=== PATIENT | female | born 1945 | race Caucasian/White ===

== ENCOUNTER 2019-03-25 06:24 | Day surgery (SDC) | payer OTHER ==
--- NOTE | 2019-03-23 15:07 | EKG ---
Test Date: 2019-03-22 Test Time: 16:00:30 A&P Technician: CONNIE MEASUREMENT RESULTS: Intervals: Rate: 64 NV: 168 QRSD: 78 QT: 392 QTc: 404 [place]: P: 60 NV: 168 QRS: 49 T: 47 INTERPRETIVE STATEMENTS: Normal sinus rhythm Normal ECG No previous ECG available for comparison Electronically Signed On 03-23-19 15:07:38 CDT by Abdi Pradhan
[2019-03-25] MEDS: OXYMETAZOLINE HCL 0.05% 15ML NAS ONE ×3 (06:40→07:00)
[2019-03-25] MEDS ORDERED: NA CHLORIDE 0.9% 1,000 ML ONE (07:10)
[2019-03-25] MEDS ORDERED: PROPOFOL 200 MG/20 ML VIAL IV ONE (07:27)
[2019-03-25] MEDS ORDERED: ROCURONIUM 50 MG/5 ML VIAL IV ONE (07:27)
[2019-03-25] MEDS ORDERED: GLYCOPYRROLATE 0.2 MG/ML SYR ONE ×2 (07:28→09:04)
[2019-03-25] MEDS ORDERED: dexAMETHasone 10 MG/ML VIAL ONE (07:29)
[2019-03-25] MEDS ORDERED: LIDOCAINE 2% MPF 5 ML VIAL ONE (07:30)
[2019-03-25] MEDS ORDERED: FENTANYL CITR 250 MCG/5 ML ONE (07:31)
[2019-03-25] MEDS ORDERED: ONDANSETRON 4 MG/2 ML VIAL ONE ×2 (07:33→09:33)
[2019-03-25] MEDS ORDERED: NEOSTIGMINE 1 MG/ML -10 ML VIAL ONE (07:33)
[2019-03-25] MEDS ORDERED: MIDAZOLAM HCL 2 MG/2 ML INJ ONE (07:33)
[2019-03-25] MEDS ORDERED: LIDOCAINE 1.5% W/EPI AMP 5 ML ONE (07:38)
[2019-03-25] MEDS ORDERED: NA CHLORIDE 0.9% 500 ML ONE (07:38)
[2019-03-25] MEDS ORDERED: OXYMETAZOLINE HCL 0.05% 15ML NAS ONE (07:38)
[2019-03-25] MEDS ORDERED: EPHEDRINE SULF 50 MG/ML VIAL ONE (08:22)
[2019-03-25] MEDS ORDERED: NYSTATIN/TRIAMCIN OINT 15 GM ONE (08:39)
[2019-03-25] MEDS ORDERED: NYSTATIN/TRIAMCIN OINT 15 GM TOP ONE (08:45)
--- NOTE | 2019-03-25 09:00 | P.BOP ---
Preoperative diagnosis: R max CRS, B neha Postoperative diagnosis: same, suspect R fungal ball Primary procedure: R NE with max antrostomy and removal fo sinus contents Secondary procedure: B neha resection Estimated blood loss: 30ml Specimen: see dication Findings: thick secretions and severely inflammed maxiallary mucosa Anesthesia: General Complications: None Fluids & blood products: crystalloid 800ml Transferred to: Recovery Room Condition: Good
[2019-03-25] MEDS: HYDROMORPHONE HCL 1 MG/ML INJ ONE ×4 (09:29→09:54)
--- NOTE | 2019-03-25 19:12 | OP ---
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 Procedures Performed: Bilateral neha bullosa resection and right maxillary antrostomy with removal of sinus contents. Indication For Procedure: Ms. 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 She underwent CT in preparation for dental implant placement, but was noted to have a right maxillary sinus opacifica tion. She was seen by me and treated with maximal medical therapy and a posttreatment CT scan reveal ed persistent complete maxillary opacification with radiographic evidence suggestive of fungal secret ions as well as a bilateral neha bullosa. The risks, benefits, and alternatives to the procedure w ere discussed with the patient who agreed to proceed. Description Of Procedure: The head of bed was turned 90 degrees. The nasal hairs were trimmed. The nasal cavity was packed with Afrin-soaked pledgets. After time for effect, these were removed and t he left nasal cavity was examined using a 0-degree endoscope. The neha bullosa was noted and injec camelia with 1.5% lidocaine with epinephrine. A sickle knife was used to incise through the head of the middle turbinates. Endoscopic scissors were used to cut the superior and inferior portions and a 45- degree through-cutting Blakesley was used to divide the posterior aspect. The lateral portion of the neha bullosa was then removed as a single large fragment. The microdebrider was used to refine th e cut edges. Removed small areas of redundant mucosal tissue and bone fragments from the edges. The middle meatus was then packed with Afrin-soaked pledgets and attention was turned to the right side. The neha bullosa and uncinate process were injected with 1.5% lidocaine with epinephrine. The ri t neha bullosa was incised and removed in a similar fashion as the left. There was no evidence o f active drainage from the maxillary infundibulum and no evidence of polyp in the middle meatus. The uncinate was then removed using a backbiter and 90-degree Blakesley. The natural os of the sinus wa s difficult to visualize due to significant mucosal inflammation and active purulence. Aerobic and a naerobic cultures were collected and the maxillary antrostomy was enlarged by removal of soft and bon y tissue using a 90-degree Blakesley. After suctioning the lining of the maxillary sinus, it was sev erely edematous and there were thick solid secretions on the floor of the sinus, suggestive of a oscar al ball based on appearance. All remnants of this debris were removed by a forceful irrigation, suct ioning, and physical removal using a 90-degree curette in order to loosen the debris. A fragment of the debris was sent for fungal culture. After additional irrigation and confirmation with a 70-degre e scope that the sinus cavity appeared clear. Afrin-soaked pledgets were applied for several minutes . After removal, oozing was minimal. Due to the fungal component as well as the degree of swelling in the sinus cavity, decision was made to instill Mycolog cream into the maxillary sinus. A 20 mL sy ringe was filled with medication and under 30-degree endoscopic guidance and a curved syringe, approx imately 5 to 10 mL of the medication was used to fill the maxillary sinus. All pledgets were removed . Counts were confirmed and the patient was returned to care of Anesthesia for awakening and extubat ion in the operating room, which proceeded without difficulty. Complications: None. Specimens: 1.Right maxillary sinus contents. 2.Aerobic culture, right maxillary sinus. 3.Anaerobic culture, right maxillary sinus. 4.Fungal culture, right maxillary sinus. Disposition: The patient will be discharged home later today and follow up with Dr. Diaz in 7 to 14 days with standard instructions for post sinus surgery irrigations. WILFREDO/DAVIE Voice ID: [id number] Report ID: [id number]
== END 2019-03-25 11:50 | disposition home or self-care (01) ==
LOC: OR 06:24
PROVIDERS: ATTEND Otolaryngology
PROC: 09BQ4ZZ Excision of Right Maxillary Sinus, Percutaneous Endoscopic Approach (ICD-10-PCS; 2019-03-25)
PROC: 09TL4ZZ Resection of Nasal Turbinate, Percutaneous Endoscopic Approach (ICD-10-PCS; principal; 2019-03-25 08:15)
DX: J32.0 Chronic maxillary sinusitis (principal); J34.89 Other specified disorders of nose and nasal sinuses; E11.9 Type 2 diabetes mellitus without complications; I10 Essential (primary) hypertension; Z79.4 Long term (current) use of insulin; Z79.82 Long term (current) use of aspirin; Z79.899 Other long term (current) drug therapy
CPT/HCPCS: 31240; 31267; 93005; 87070; 87205 ×2; 82962 ×2; 88304; 88311; 87075; 87077; 87186; 87102; J2704; J2710; J2250; J3010; J1100; J1170 ×2; J2001; J7030; J2405 ×2

== ENCOUNTER 2019-12-20 16:18 | Emergency (ER) | payer OTHER ==
--- OUTSIDE RECORDS SUMMARY | 2019-12-20 16:20 | XMS REPORT | Encounter Summary ---
:1945 Author Reason for Visit annual shagger exam Instructions 1. Gynecologic examination Discussion Note 73 yo white lady who presents today for wwe. Her only physical complaints today is she has some area of what she calls pimples on her mons, it turns out that she has folliculitis to the mons and to the right of the midline. The remainder of her pelvic exam is essentially unbreakable. The patient is not sexually active. 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 The patient is someone depressed at this time, she lost a son only a month ago. The cause of is unknown at this time. The patients son did have diabetes which he did not controlled but at this migue e the cause of is still unknown. T he are waiting for results of autopsy. We have requested mammography and plan t o see her back annually. Patient educational handouts: No information available. Plan of Care Reminders Provider Appointments Dr Mann on or around Jose Lutz Wwe 07/11/2020 MD [facility] None recorded. Referral None recorded. Procedures None recorded. Surgeries None recorded. Imaging None recorded. Medications Name Start Date atorvastatin 40 mg tablet cholestyramine (with sugar) 4 gram powder for susp in a packet colestipol 1 gram tablet dicyclomine 10 mg capsule diphenoxylate-atropine 2.5 mg-0.025 mg tablet fluticasone propionate 50 mcg/actuation nasal spray,lance spension Humulin 70/30 U-100 Insulin 100 unit/mL subcutaneous s uspension lisinopril 10 mg-hydrochlorothiazide 12.5 mg tablet methylprednisolone 4 mg tablets in a dose pack sulfamethoxazole 800 mg-trimethoprim 160 mg tablet tramadol 50 mg tablet Medications Administered None recorded. Vitals Height Weight BMI Blood Pressure 5 ft 126 lbs 24.6 kg/m2 156/68 mm[Hg] Results Lab Results None recorded. Allergies Code Code System Name Reaction Severity Status Onset NKDA Problems None recorded. Procedures Date Name Performed by 09/07/2015 Hernia Repair W/mesh Information not edward ilable 09/07/2015 Cholecystectomy Information not avai lable Vaccine List None recorded. Social History Tobacco Smoking Status Never Smoker Past Encounters 07/11/2019 Gynecologic Examination Jose Mann MD: [address], [place] [address], Ph. History of Present Illness Note: <p>wwe,tr</p> Review of Systems [facility] Reported By: Patient Physical Exam None recorded.
--- NOTE | 2019-12-20 17:28 | RAD REPORT ---
EXAM DESCRIPTION: CT - CTHCSPWOC - 12/20/2019 5:18 pm CLINICAL HISTORY: SMASH INJURY, trip and fall, trauma to forehead, head and neck pain COMPARISON: No comparisons TECHNIQUE: Axial 5 mm thick images of the head were obtained. Axial 2 mm thick images of the cervic al spine were obtained with sagittal and coronal reconstruction images generated and reviewed. All CT scans are performed using dose optimization technique as appropriate and may include automated exposure control or mA/KV adjustment according to patient size. FINDINGS: No intracranial hemorrhage, mass, edema or acute intracranial finding. No suspicion for ac [place] pine infarction. No cortical edema or sulcal effacement. Mild atrophy and mild chronic ischemic change s are present. Ventricles are in proportion to volume loss. Mastoid air cells and paranasal sinuses a re clear. No globe or orbit abnormality seen. Small left frontal scalp hematoma present underlying josesito ne intact. Cervical bodies are normal in height. No subluxation abnormalities. There is straightening of the usu al cervical lordosis. C5-6 and C6-7 disc space narrowing present. Severe facet joint degenerative renetta nge on the right at C3-4 and C4-5. There is significant C4-5 right foraminal stenosis. Moderate bilat eral foraminal stenosis at C5-6 and C6-7 from uncovertebral joint hypertrophy. No fracture or acute b christofer abnormality. Central canal detail is inherently limited. No paraspinal mass or hematoma. IMPRESSION: Atrophy and chronic ischemic changes are present with no acute intracranial finding. Small left frontal scalp hematoma with underlying bone intact. Advanced cervical spine degenerative change as detailed. No acute findings seen. Central canal detail is inherently limited.
--- NOTE | 2019-12-20 17:58 | RAD REPORT ---
EXAM DESCRIPTION: RAD - Lumbar Spine 3 Views - 12/20/2019 5:28 pm CLINICAL HISTORY: Pain;Smash injury COMPARISON: Small Bowel Series dated 10/28/2018 FINDINGS: A three-view lumbar spine examination was performed. Lumbar bodies are normal in height. L5 is a transition body with L5-S1 an nonmovable disc level. Ante rior subluxation of L4 on L5 noted. This is approximately 6-7 mm. The L4-5 disc space is narrowed. Ad vanced facet degenerative change noted at this level without a pars defects seen. Moderate severity f acet degenerative change noted elsewhere in the lumbar spine. No other alignment abnormalities. No fr acture or acute bony process seen. No other disc space narrowing. Endplate spurs are more prominent i n the upper lumbar spine. SI joint degenerative change present. No pars defects identified. IMPRESSION: Prominent degenerative change involves the L4-5 disc space and facet joints. There is an terior subluxation of 6-7 mm secondary to advanced facet degenerative change. No compression fracture or acute vertebral body finding. Degenerative changes are present elsewhere i n the lumbar spine.
--- NOTE | 2019-12-20 18:05 | ER ---
Nurse's Notes [facility] Name: Casie Gutierrez Age: 74 yrs Sex: Female : 1945 Arrival Date: 12/20/2019 Time: 16:24 Bed 6 Private MD: Diagnosis: Fall on same level from slipping, tripping and stumbling with subsequent striking against object;Unspecified injury of head;Laceration without foreign body of left forearm;Laceration without foreign body of right hand Presentation: 12/19 16:24 Chief complaint: Patient states: Tripped and fell in the garage at around 8am this ca1 morning. Bruising on forehead, R shoulder, nose. Lac on L forearm, R hand. C/O R knee pain, mid/upper back pain. Denies LOC, not blood thinners. Coronavirus screen: Proceed with normal triage. Patient denies a cough. Patient denies shortness of breath or difficulty breathing. Patient denies measured and/or subjective temperature greater than 100.4F prior to today's visit. Patient denies travel on a cruise ship or to a country the [facility] currently lists as an affected area. Patient denies contact with known and/or suspected case of COVID-19. Ebola Screen: Patient negative for fever greater than or equal to 101.5 degrees Fahrenheit, and additional compatible Ebola Virus Disease symptoms Patient denies exposure to infectious person. Patient denies travel to an Ebola-affected area in the 21 days before illness onset. No symptoms or risks identified at this time. Initial Sepsis Screen: Does the patient meet any 2 criteria? No. Patient's initial sepsis screen is negative. Does the patient have a suspected source of infection? No. Patient's initial sepsis screen is negative. Risk Assessment: Do you want to hurt yourself or someone else? Patient reports no desire to harm self or others. Onset of symptoms was December 20, 2019 at 08:00. 16:24 Method Of Arrival: Ambulatory ca1 16:24 Acuity: ELLIE 4 ca1 17:00 Care prior to arrival: None. Mechanism of Injury: Fall from standing position. Trauma jl7 event details: Injury occurred in the [facility]. Trauma Activation: Not Applicable Physician: ED Physician; Name: ; Notified At: ; Arrived At: Physician: General Surgeon; Name: ; Notified At: ; Arrived At: Physician: Radiology; Name: ; Notified At: ; Arrived At: Physician: Respiratory; Name: ; Notified At: ; Arrived At: Physician: Lab; Name: ; Notified At: ; Arrived At: Historical: - Allergies: 16:30 No Known Allergies; ca1 - Home Meds: 16:38 Levemir 100 unit/mL subcutaneous soln 10 unit twice a day [Active]; ca1 17:07 Levemir 100 unit/mL subcutaneous soln 10 unit twice a day [Active]; colestipol oral 4 ca1 gram oral 2 times per day [Active]; dicyclomine 10 mg Oral cap 1 cap twice a day [Active]; Lomotil 2.5-0.025 mg oral tab 2 tabs once daily [Active]; lisinopril-hydrochlorothiazide 10-12.5 mg oral tab 1 tab once daily [Active]; atorvastatin 40 mg oral tab 1 tab once daily [Active]; Citracal Oral 1200 mg [Active]; aspirin 81 mg Oral chew 1 tab once daily [Active]; - PMHx: 16:38 Diabetes - IDDM; Hypertension; Hyperlipidemia; ca1 - PSHx: 16:38 Hernia repair; Cholecystectomy; Heart Cath; Nisson Fundoplication; ca1 - Immunization history:: Adult Immunizations up to date, Pneumococcal vaccine is up to date. - Social history:: Smoking status: Patient denies any tobacco usage or history of. - Immunization history: Last tetanus immunization: - up to date. Screenin:35 Abuse screen: Denies threats or abuse. Denies injuries from another. Tuberculosis jl7 screening: No symptoms or risk factors identified. 18:10 Nutritional screening: No deficits noted. Fall Risk jl7 Primary Survey: 16:35 NO uncontrolled hemorrhage observed. Breathing/Chest: Respiratory pattern: regular, jl7 Respiratory effort: spontaneous, unlabored, Chest inspection: symmetrical rise and fall of the chest. Circulation: Skin color: pink. Disability Alert. Exposure/Environment: There is no evidence of uncontrolled external bleeding. 18:10 Reassessment Breathing/Chest Respiratory pattern Regular Respiratory effort Spontaneous jl7 Unlabored Chest inspection Symmetrical. Assessment: 16:35 General: Appears in no apparent distress. uncomfortable, Behavior is calm, cooperative, jl7 appropriate for age. Pain: Denies pain. Neuro: Level of Consciousness is awake, alert, obeys commands, Oriented to person, place, time, situation. EENT: No signs and/or symptoms were reported regarding the EENT system. Cardiovascular: Patient's skin is warm and dry. Respiratory: Airway is patent Respiratory effort is even, unlabored, Respiratory pattern is regular, symmetrical. Derm: Skin is pink, warm \T\ dry. 18:11 Reassessment: Patient is alert, oriented x 3, equal unlabored respirations, skin aa5 warm/dry/pink. Vital Signs: 16:24 BP 116 / 61; Pulse 78; Resp 17 S; Temp 99.2(TE); Pulse Ox 99% on R/A; Weight 55.79 kg ca1 (R); Height 5 ft. 2 in. (157.48 cm) (R); 16:24 Body Mass Index 22.50 (55.79 kg, 157.48 cm) ca1 Tofte Coma Score: 16:35 Eye Response: spontaneous(4). Verbal Response: oriented(5). Motor Response: obeys jl7 commands(6). Total: 15. Trauma Score (Adult): 16:35 Eye Response: spontaneous(1); Verbal Response: oriented(1); Motor Response: obeys jl7 commands(2); Systolic BP: > 89 mm Hg(4); Respiratory Rate: 10 to 29 per min(4); Tofte Score: 15; Trauma Score: 12 ED Course: 16:24 Patient arrived in ED. mr 16:29 Triage completed. ca1 16:30 Arm band placed on right wrist. ca1 16:31 Ronny Jones RN is Primary Nurse. jl7 16:31 Cassidy Lyn FNP-C is [facility]. snw 16:31 Baljeet Ritchie MD is Attending Physician. snw 16:35 Patient has correct armband on for positive identification. Placed in gown. Bed in low jl7 position. Call light in reach. Side rails up X2. 16:35 Patient maintains SpO2 saturation greater than 95% on room air. Thermoregulation: warm jl7 blanket given to patient. 17:00 Wound care: to Skin tear located on right hand and left arm was cleaned with Hibiclens, jl7 dressed with tegaderm, Patient tolerated well. 17:19 CT Head C Spine In Process Unspecified. EDMS 17:19 CT completed. Patient tolerated procedure well. Patient moved to radiology via wi stretcher. 17:27 Lumbar Spine (3 Views) XRAY In Process Unspecified. EDMS 18:11 No provider procedures requiring assistance completed. Patient did not have IV access aa5 during this emergency room visit. Administered Medications: No medications were administered Intake: 16:35 PO: 0ml; IV: 0ml; Tubes: 0ml (); Total: 0ml. jl7 Output: 16:35 Urine: 0ml; Gastric: 0ml; Stool: 0; EBL: 0ml; Drainage: 0ml; Other: 0; Total: 0ml. jl7 Outcome: 18:04 Discharge ordered by . jeanne 18:11 Discharged to home via wheelchair. aa5 18:11 Condition: stable 18:11 Discharge instructions given to patient, Instructed on discharge instructions, follow up and referral plans. medication usage, Demonstrated understanding of instructions, follow-up care, medications, Prescriptions given X 1. 18:12 Patient left the ED. aa5 Signatures: Dispatcher [employer] EDWA Cassidy Lyn, RECORDS ASSOCIATE-C RECORDS ASSOCIATE-Karlie CarterLorena mr Pollard, Maryse, RN RN aa5 Orlando Ma Jahala, RN RN jl7 Nancy York RN RN ca1
--- NOTE | 2019-12-20 18:05 | EDPHYS ---
Physician Documentation [facility] Name: Casie Gutierrez Age: 74 yrs Sex: Female : 1945 Arrival Date: 12/20/2019 Time: 16:24 Bed 6 Private MD: ED Physician Baljeet Ritchie HPI: 12/19 16:46 This 74 yrs old Female presents to ER via Ambulatory with complaints of Fall snw Injury. 16:46 Details of fall: The patient fell from an upright position, while walking. Onset: The snw symptoms/episode began/occurred suddenly, this morning. Associated injuries: The patient sustained injury to the head, contusion, tenderness. Severity of symptoms: At their worst the symptoms were mild. The patient has not experienced similar symptoms in the past. It is unknown whether or not the patient has recently seen a physician. pt states she missed the step down into garage and fell on the concrete in the garage. Denies LOC, pain, vomiting.. Historical: - Allergies: 16:30 No Known Allergies; ca1 - Home Meds: 16:38 Levemir 100 unit/mL subcutaneous soln 10 unit twice a day [Active]; ca1 17:07 Levemir 100 unit/mL subcutaneous soln 10 unit twice a day [Active]; colestipol oral 4 ca1 gram oral 2 times per day [Active]; dicyclomine 10 mg Oral cap 1 cap twice a day [Active]; Lomotil 2.5-0.025 mg oral tab 2 tabs once daily [Active]; lisinopril-hydrochlorothiazide 10-12.5 mg oral tab 1 tab once daily [Active]; atorvastatin 40 mg oral tab 1 tab once daily [Active]; Citracal Oral 1200 mg [Active]; aspirin 81 mg Oral chew 1 tab once daily [Active]; - PMHx: 16:38 Diabetes - IDDM; Hypertension; Hyperlipidemia; ca1 - PSHx: 16:38 Hernia repair; Cholecystectomy; Heart Cath; Nisson Fundoplication; ca1 - Immunization history:: Adult Immunizations up to date, Pneumococcal vaccine is up to date. - Social history:: Smoking status: Patient denies any tobacco usage or history of. - Immunization history: Last tetanus immunization: - up to date. ROS: 16:44 Constitutional: Negative for fever, chills, and weight loss, Eyes: Negative for injury, snw pain, redness, and discharge, ENT: Negative for injury, pain, and discharge, Neck: Negative for injury, pain, and swelling, Cardiovascular: Negative for chest pain, palpitations, and edema, Respiratory: Negative for shortness of breath, cough, wheezing, and pleuritic chest pain, Abdomen/GI: Negative for abdominal pain, nausea, vomiting, diarrhea, and constipation, Back: Negative for injury and pain, : Negative for injury, bleeding, discharge, and swelling, MS/Extremity: Negative for injury and deformity, mild discomfort at tailbone 16:44 Skin: Positive for ecchymosis, laceration(s), of the right hand and left arm. 16:44 Neuro: Positive for tripped and fell, struck forehead, concerned re: bruising, no LOC, no Vomiting, denies dizziness. Exam: 16:41 Constitutional: This is a well developed, well nourished patient who is awake, alert, snw and in no acute distress. 16:41 Eyes: Pupils equal round and reactive to light, extra-ocular motions intact. Lids and lashes normal. Conjunctiva and sclera are non-icteric and not injected. Cornea within normal limits. Periorbital areas with no swelling, redness, or edema. 16:41 Neck: Trachea midline, no thyromegaly or masses palpated, and no cervical lymphadenopathy. Supple, full range of motion without nuchal rigidity, or vertebral point tenderness. No Meningismus. Chest/axilla: Normal chest wall appearance and motion. Nontender with no deformity. No lesions are appreciated. Cardiovascular: Regular rate and rhythm with a normal S1 and S2. No gallops, murmurs, or rubs. Normal PMI, no JVD. No pulse deficits. Respiratory: Lungs have equal breath sounds bilaterally, clear to auscultation and percussion. No rales, rhonchi or wheezes noted. No increased work of breathing, no retractions or nasal flaring. Abdomen/GI: Soft, non-tender, with normal bowel sounds. No distension or tympany. No guarding or rebound. No evidence of tenderness throughout. Back: No spinal tenderness. No costovertebral tenderness. Full range of motion. MS/ Extremity: Pulses equal, no cyanosis. Neurovascular intact. Full, normal range of motion. Neuro: Awake and alert, GCS 15, oriented to person, place, time, and situation. Cranial nerves II-XII grossly intact. Motor strength 5/5 in all extremities. Sensory grossly intact. Cerebellar exam normal. Normal gait. Psych: Awake, alert, with orientation to person, place and time. Behavior, mood, and affect are within normal limits. 16:41 Head/face: Noted is contusion, ecchymosis, that is moderate, of the forehead, swelling, tenderness to nasal bridge, no epistaxis. 16:41 ENT: External ear(s): are unremarkable, Nose: External nose: contusion is noted, tenderness, Mouth: is normal, Voice: is normal. 16:41 Skin: Appearance: normal except for affected area, injury, laceration(s), the wound is approximately 4 cm(s), with a depth of .25 cm(s), of the left arm, the second wound is approximately 2 cm(s), with a depth of .25 cm(s), of the dorsum of right hand. Vital Signs: 16:24 BP 116 / 61; Pulse 78; Resp 17 S; Temp 99.2(TE); Pulse Ox 99% on R/A; Weight 55.79 kg ca1 (R); Height 5 ft. 2 in. (157.48 cm) (R); 16:24 Body Mass Index 22.50 (55.79 kg, 157.48 cm) ca1 [place] Coma Score: 16:35 Eye Response: spontaneous(4). Verbal Response: oriented(5). Motor Response: obeys jl7 commands(6). Total: 15. Trauma Score (Adult): 16:35 Eye Response: spontaneous(1); Verbal Response: oriented(1); Motor Response: obeys jl7 commands(2); Systolic BP: > 89 mm Hg(4); Respiratory Rate: 10 to 29 per min(4); Kenneth Score: 15; Trauma Score: 12 MDM: 16:34 Patient medically screened. [facility] 18:02 Data reviewed: vital signs, nurses notes. Data interpreted: Pulse oximetry: on room air snw is 99 %. Interpretation: normal. Counseling: I had a detailed discussion with the patient and/or guardian regarding: the historical points, exam findings, and any diagnostic results supporting the discharge/admit diagnosis, radiology results, the need for outpatient follow up, to return to the emergency department if symptoms worsen or persist or if there are any questions or concerns that arise at home. Special discussion: I discussed in detail with the patient the higher chance of wound infection based on his presenting history. Based on the history and exam findings, there is no indication for further emergent testing or inpatient evaluation. I discussed with the patient/guardian the need to see the primary care provider for further evaluation of the symptoms. 12/19 16:39 Order name: CT Head C Spine; Complete Time: 17:32 snw 12/19 16:39 Order name: Lumbar Spine (3 Views) XRAY; Complete Time: 18:01 snw 12/19 16:39 Order name: Wound Care; Complete Time: 17:42 snw 12/19 16:39 Order name: Wound dressing; Complete Time: 17:42 snw Administered Medications: No medications were administered Disposition: 12/20/19 18:04 Discharged to Home. Impression: Fall on same level from slipping, tripping and stumbling with subsequent striking against object, Unspecified injury of head, Laceration without foreign body of left forearm, Laceration without foreign body of right hand. - Condition is Stable. - Discharge Instructions: Back Pain, Adult, Head Injury, Adult, Fall Prevention in the Home, RICE for Routine Care of Injuries, Skin Tear Care, Degenerative Disk Disease, Heat Therapy, Rehydration, Elderly. - Prescriptions for orphenadrine citrate 100 mg Oral Tablet Sustained Release - take 1 tablet by ORAL route 2 times per day As needed; 20 tablet. - Medication Reconciliation Form, Thank You Letter, Antibiotic Education, Prescription Opioid Use form. - Follow up: Private Physician; When: 2 - 3 days; Reason: Recheck today's complaints, Continuance of care, Re-evaluation by your physician. Follow up: Emergency Department; When: As needed; Reason: Worsening of condition. Addendum: 12/21/2019 19:09 Co-signature as Attending Physician, Baljeet Ritchie MD I agree with the assessment and c moseley plan of care. Signatures: Dispatcher [employer] Baljeet Cruz MD MD cha Therrien, Shelly, HEAD PACKAGER-C HEAD PACKAGER-Csnw Maryse Pollard, RN RN aa5 Ronny Jones RN RN jlNancy Jhaveri RN RN ca1 Corrections: (The following items were deleted from the chart) 12/19 18:12 18:04 12/20/2019 18:04 Discharged to Home. Impression: Fall on same level from aa5 slipping, tripping and stumbling with subsequent striking against object; Unspecified injury of head; Laceration without foreign body of left forearm; Laceration without foreign body of right hand. Condition is Stable. Forms are Medication Reconciliation Form, Thank You Letter, Antibiotic Education, Prescription Opioid Use. Follow up: Private Physician; When: 2 - 3 days; Reason: Recheck today's complaints, Continuance of care, Re-evaluation by your physician. Follow up: Emergency Department; When: As needed; Reason: Worsening of condition. snw
[2019-12-20 18:22] VITALS: BP 116/61; TEMP 99.2; O2SAT 99
== END 2019-12-20 18:12 | disposition home or self-care (01) ==
LOC: ER 16:18
DX: S51.812A Laceration without foreign body of left forearm, initial encounter (principal); S61.411A Laceration without foreign body of right hand, initial encounter; W01.198A Fall on same level from slipping, tripping and stumbling with subsequent striking against other object, initial encounter; Y93.01 Activity, walking, marching and hiking; Y92.89 Other specified places as the place of occurrence of the external cause; I10 Essential (primary) hypertension; E11.9 Type 2 diabetes mellitus without complications; E78.5 Hyperlipidemia, unspecified; Z79.4 Long term (current) use of insulin; Z79.82 Long term (current) use of aspirin
CPT/HCPCS: 70450; 72100; 72125; 99284

== ENCOUNTER 2022-03-26 09:02 | Emergency (ER) | payer OTHER ==
--- NOTE | 2022-03-26 09:43 | RAD REPORT ---
EXAM DESCRIPTION: CT - CTHCSPWOC - 03/26/2022 9:33 am CLINICAL HISTORY: Trauma, head and neck injury. fall COMPARISON: Head C Spine Mpr Wo Con dated 12/20/2019 TECHNIQUE: Axial 5 mm thick images of the head were obtained. Axial 2 mm thick images of the cervical spine were obtained with sagittal and coronal reconstruction images generated and reviewed. All CT scans are performed using dose optimization technique as appropriate and may include automated exposure control or mA/KV adjustment according to patient size. FINDINGS: CT HEAD WITHOUT CONTRAST: No acute hemorrhage, hydrocephalus or extra-axial collection is identified.Mild brain atrophy is seen .No areas of brain edema or midline shift. The paranasal sinuses and mastoids are clear.The calvarium is intact. CT CERVICAL SPINE WITHOUT CONTRAST: No fracture or subluxation.Moderate lower cervical degenerative spondylosis.No prevertebral soft tiss ues swelling is identified. IMPRESSION: No acute intracranial or cervical spine findings. Mild lower cervical spondylosis.
[2022-03-26 10:13] LABS: Absolute Lymphocytes (CBC) 1.2 K/uL (0.7-4.9); Hematocrit 33.2 % (36.0-45.0); Lymphocytes % 16.7 % (15.3-44.8); MCV 91.2 fL (80-100); RBC Red Blood Cell Count 3.64 M/uL (3.86-4.86)
[2022-03-26 10:15] LABS: Protime INR 0.99
--- NOTE | 2022-03-26 10:15 | RAD REPORT ---
EXAM DESCRIPTION: RAD - Chest Single View - 03/26/2022 9:52 am CLINICAL HISTORY: TRAUMA Chest pain. COMPARISON: No comparisons FINDINGS: Portable technique limits examination quality. The lungs are grossly clear. The heart is normal in size. No displaced fractures. IMPRESSION: No acute intrathoracic process suspected.
[2022-03-26 10:29] LABS: Magnesium 2.1 mg/dL (1.8-2.4); Potassium 3.8 mmol/L (3.5-5.1)
--- NOTE | 2022-03-26 11:52 | EDPHYS ---
Physician Documentation [facility] Name: Casie Gutierrez Age: 76 yrs Sex: Female : 1945 Arrival Date: 03/26/2022 Time: 09:05 Bed 15 Private MD: ED Physician Stevenson Massey HPI: 03/26 12:57 This 76 yrs old Female presents to ER via EMS with complaints of Fall Injury. ms3 12:57 Details of fall: The patient fell from an upright position, while standing. Onset: The ms3 symptoms/episode began/occurred this morning. Associated injuries: The patient sustained Bilateral forearms and forehead. Severity of symptoms: At their worst the symptoms were mild, in the emergency department the symptoms have resolved. 76-year-old female presents via EMS status post fall. EMS states on their arrival patient's glucose was low-50. Patient was administered D10.. Historical: - Allergies: 09:15 No Known Allergies; vg1 - Home Meds: 09:15 lisinopril-hydrochlorothiazide 10-12.5 mg Oral tab 1 tab once daily [Active]; vg1 clopidogrel oral [Active]; Insulin [Active]; - PMHx: 09:15 Diabetes - IDDM; Hyperlipidemia; Hypertension; vg1 - Immunization history:: Client reports receiving the 2nd dose of the Covid vaccine. - Social history:: Smoking status: Patient denies any tobacco usage or history of. - Immunization history: Last tetanus immunization: unknown. ROS: 12:57 Constitutional: Negative for fever, and chills. Neck: Negative for injury, pain, and ms3 swelling, Cardiovascular: Negative for chest pain, and palpitations. Respiratory: Negative for shortness of breath, cough, wheezing, and pleuritic chest pain, Abdomen/GI: Negative for abdominal pain, nausea, vomiting, diarrhea, and constipation, MS/Extremity: Negative for injury and deformity. 12:57 Psych: Negative for depression, anxiety, suicide ideation, homicidal ideation, and hallucinations. 12:57 Skin: Positive for skin tears. 12:57 Neuro: Positive for syncope. 12:57 All other systems are negative. Exam: 09:53 ECG was reviewed by the Attending Physician. ms3 12:57 Constitutional: This is a well developed, well nourished patient who is awake, alert, ms3 and in no acute distress. Head/Face: Normocephalic, atraumatic. Chest/axilla: Normal chest wall appearance and motion. Nontender with no deformity. Cardiovascular: Regular rate and rhythm with a normal S1 and S2. No gallops, murmurs, or rubs. Normal PMI, no JVD. No pulse deficits. Respiratory: Lungs have equal breath sounds bilaterally, clear to auscultation and percussion. No rales, rhonchi or wheezes noted. No increased work of breathing, no retractions or nasal flaring. Abdomen/GI: Soft, non-tender, with normal bowel sounds. No distension or tympany. No guarding or rebound. No evidence of tenderness throughout. 12:57 Skin: Bilateral forearm skin tears. Vital Signs: 09:12 BP 150 / 67; Pulse 76; Resp 16; Temp 97.9; Pulse Ox 99% ; Weight 56.7 kg; Height 5 ft. vg1 2 in. (157.48 cm); Pain 0/10; 09:45 BP 147 / 63; Pulse 68; Resp 15; Pulse Ox 98% on R/A; vg1 10:16 BP 140 / 86; Pulse 62; Resp 14; Pulse Ox 100% on R/A; vg1 10:51 BP 125 / 55; Pulse 65; Resp 18; Pulse Ox 99% on R/A; vg1 11:24 BP 141 / 61; Pulse 73; Resp 15; Pulse Ox 100% on R/A; vg1 12:00 BP 150 / 62; Pulse 71; Resp 20; Pulse Ox 100% on R/A; vg1 12:30 BP 151 / 57; Pulse 68; Resp 14; Pulse Ox 100% on R/A; vg1 12:49 BP 147 / 59; Pulse 71; Resp 16; Pulse Ox 98% on R/A; vg1 09:12 Body Mass Index 22.86 (56.70 kg, 157.48 cm) vg1 [place] Coma Score: 09:17 Eye Response: spontaneous(4). Verbal Response: oriented(5). Motor Response: obeys vg1 commands(6). Total: 15. 09:45 Eye Response: spontaneous(4). Verbal Response: oriented(5). Motor Response: obeys vg1 commands(6). Total: 15. 10:16 Eye Response: spontaneous(4). Verbal Response: oriented(5). Motor Response: obeys vg1 commands(6). Total: 15. 10:51 Eye Response: spontaneous(4). Verbal Response: oriented(5). Motor Response: obeys vg1 commands(6). Total: 15. 11:24 Eye Response: spontaneous(4). Verbal Response: oriented(5). Motor Response: obeys vg1 commands(6). Total: 15. 12:00 Eye Response: spontaneous(4). Verbal Response: oriented(5). Motor Response: obeys vg1 commands(6). Total: 15. 12:30 Eye Response: spontaneous(4). Verbal Response: oriented(5). Motor Response: obeys vg1 commands(6). Total: 15. 12:49 Eye Response: spontaneous(4). Verbal Response: oriented(5). Motor Response: obeys vg1 commands(6). Total: 15. Trauma Score (Adult): 09:17 Eye Response: spontaneous(1); Verbal Response: oriented(1); Motor Response: obeys vg1 commands(2); Systolic BP: > 89 mm Hg(4); Respiratory Rate: 10 to 29 per min(4); Kenneth Score: 15; Trauma Score: 12 MDM: 09:11 Patient medically screened. ms3 11:52 Refusal of service: The patient/guardian displays adequate decision making capability ms3 and despite a detailed discussion of alternatives, benefits, risks, and consequences refuses: Admission to the hospital for further work-up and treatment. 12:57 Differential diagnosis: abrasion, closed head injury, contusion, fracture. Data ms3 reviewed: vital signs, nurses notes, lab test result(s), EKG, radiologic studies, and as a result, I will discharge patient. Data interpreted: campaign assistant: rate is 70 beats/min, rhythm is normal sinus rhythm, with no ectopy, Interpretation: normal rate, normal rhythm. Counseling: I had a detailed discussion with the patient and/or guardian regarding: the historical points, exam findings, and any diagnostic results supporting the discharge/admit diagnosis, lab results, radiology results, the need for outpatient follow up, to return to the emergency department if symptoms worsen or persist or if there are any questions or concerns that arise at home. ED course: On reevaluation patient symptoms improved, patient is alert and oriented x4, no apparent distress, nontoxic, ambulatory in emergency department, tolerating p.o. Patient states her glucose level was elevated last night and she took too much of her insulin. . 03/26 09:27 Order name: Basic Metabolic Panel; Complete Time: 10:48 ms3 03/26 09:27 Order name: CBC with Diff; Complete Time: 10:48 ms3 03/26 09:27 Order name: Magnesium; Complete Time: 10:48 ms3 03/26 09:27 Order name: PT-INR; Complete Time: 10:48 ms3 03/26 09:27 Order name: Troponin HS; Complete Time: 10:48 ms3 03/26 09:27 Order name: Type And Screen; Complete Time: 11:17 ms3 03/26 09:27 Order name: XRAY Chest (1 view); Complete Time: 10:48 ms3 03/26 09:27 Order name: EKG; Complete Time: 09:28 ms3 03/26 09:27 Order name: Cardiac monitoring; Complete Time: 09:48 ms3 03/26 09:27 Order name: EKG - Nurse/Tech; Complete Time: 09:48 ms3 03/26 09:27 Order name: CT Head C Spine; Complete Time: 10:48 ms3 03/26 09:32 Order name: Glucose, Ancillary Testing; Complete Time: 10:48 EDMS 03/26 11:48 Order name: ABO/RH no charge EDMS 03/26 09:27 Order name: IV Saline Lock; Complete Time: 09:48 ms3 03/26 09:27 Order name: Labs collected and sent; Complete Time: 09:48 ms3 03/26 09:27 Order name: O2 Per Protocol; Complete Time: 09:48 ms3 03/26 09:27 Order name: O2 Sat Monitoring; Complete Time: 09:48 ms3 EC:53 Rate is 60 beats/min. Rhythm is regular. QRS [place] is Normal. PA interval is normal. ms3 Clinical impression: Normal ECG. Interpreted by me. Reviewed by me. Administered Medications: No medications were administered Disposition Summary: 03/26/22 11:51 Discharge Ordered Location: Home ms3 Condition: Stable ms3 Diagnosis - Fall on same level, unspecified ms3 - skin tear ms3 - syncope ms3 Followup: ms3 - With: Private Physician - When: 1 - 2 days - Reason: Re-evaluation by your physician Discharge Instructions: - Discharge Summary Sheet ms3 - Fall Prevention in the Home, Adult ms3 - Syncope ms3 Forms: - Medication Reconciliation Form ms3 - Thank You Letter ms3 - Antibiotic Education ms3 - Prescription Opioid Use ms3 Signatures: Dispatcher [employer] Nguyen Blanco RN RN vg1 Stevenson Massey DO DO ms3
--- NOTE | 2022-03-26 11:52 | ER ---
Nurse's Notes [facility] Name: Casie Gutierrez Age: 76 yrs Sex: Female : 1945 Arrival Date: 03/26/2022 Time: 09:05 Bed 15 Private MD: Diagnosis: Fall on same level, unspecified;skin tear;syncope Presentation: 03/26 09:12 Chief complaint: EMS states: toned out for a fall; pt was found on the floor having vg1 involuntary muscle spasms; neighbor stated pt fell yesterday and has been 'acting weird since 0900 yesterday' Pt stated unsure if hit head. upon arrival, EMS took pt straight to [place]. Coronavirus screen: Vaccine status: Patient reports receiving the 2nd dose of the covid vaccine. Client denies travel out of the [place] in the last 14 days. Ebola Screen: Patient denies exposure to infectious person. Patient denies travel to an Ebola-affected area in the 21 days before illness onset. Initial Sepsis Screen: Does the patient meet any 2 criteria? No. Patient's initial sepsis screen is negative. Does the patient have a suspected source of infection? No. Patient's initial sepsis screen is negative. Risk Assessment: Do you want to hurt yourself or someone else? Patient reports no desire to harm self or others. Onset of symptoms was March 26, 2022. 09:12 Method Of Arrival: EMS: [place] [id number] 09:12 Acuity: ELLIE [address] [facility] 09:12 Care prior to arrival: IV initiated. 24 g L hand Initial glucose check was 50 on scene, vg1 administered 15 g of oral glucose, reassessed glucose of 69, administered 50 mL of D10. 09:23 Mechanism of Injury: Fall. Trauma event details: Injury occurred in the county of [address] Triage Assessment: 09:15 General: Appears in no apparent distress. uncomfortable, Behavior is calm, cooperative. vg1 Pain: Denies pain. EENT: No signs and/or symptoms were reported regarding the EENT system. Neuro: Level of Consciousness is awake, alert, obeys commands, Oriented to person, place, time, situation. Cardiovascular: Patient's skin is warm and dry. Respiratory: Airway is patent Respiratory effort is even, unlabored. GI: Abdomen is round bruised on right upper quadrant and left lower quadrant Patient currently denies nausea, vomiting. : No signs and/or symptoms were reported regarding the genitourinary system. Derm: Skin has skin tears on CARMELA arms Bruising that is on abdomen, right arm and left arm. Musculoskeletal: Circulation, motion, and sensation intact. Trauma Activation: Physician: ED Physician; Name: HAYWOOD; Notified At: ; Arrived At: Physician: General Surgeon; Name: ; Notified At: ; Arrived At: Physician: Radiology; Name: ; Notified At: ; Arrived At: Physician: Respiratory; Name: ; Notified At: ; Arrived At: Physician: Lab; Name: ; Notified At: ; Arrived At: Historical: - Allergies: 09:15 No Known Allergies; vg1 - Home Meds: 09:15 lisinopril-hydrochlorothiazide 10-12.5 mg Oral tab 1 tab once daily [Active]; vg1 clopidogrel oral [Active]; Insulin [Active]; - PMHx: 09:15 Diabetes - IDDM; Hyperlipidemia; Hypertension; vg1 - Immunization history:: Client reports receiving the 2nd dose of the Covid vaccine. - Social history:: Smoking status: Patient denies any tobacco usage or history of. - Immunization history: Last tetanus immunization: unknown. Screenin:17 Abuse screen: Denies threats or abuse. Nutritional screening: No deficits noted. vg1 Tuberculosis screening: No symptoms or risk factors identified. 09:20 Fall Risk Fall in past 12 months (25 points). No secondary diagnosis (0 pts). IV access vg1 (20 points). Ambulatory Aid- None/Bed Rest/Nurse Assist (0 pts). Gait- Weak (10 pts.). Mental Status- Oriented to own ability (0 pts). Total Holt Fall Scale indicates No Risk (0-24 pts). Primary Survey: 09:17 NO uncontrolled hemorrhage observed. Breathing/Chest: Spontaneous respiratory effort, vg1 equal unlabored respirations, breath sounds clear bilaterally, regular pattern, symmetrical chest rise and fall. Circulation: No external hemorrhage present. Regular and strong central pulse, skin warm/dry/normal color. Disability Client is alert. Exposure/Environment: All clothing and personal items were removed. Forensic evidence collection is not deemed to be indicated at this time. Items placed in patient belonging bag. 10:15 Reassessment Alertness and Airway: Awake and alert. The airway is patent. Breathing: vg1 Spontaneous respiratory effort, equal unlabored respirations, breath sounds clear bilaterally, regular pattern with symmetrical chest rise and fall. Circulation: No external hemorrhage noted. Regular and strong central pulse, skin warm/dry/normal color. Disability: Alert. Secondary Survey: 09:17 HEENT: Head Other pt stated unsure if hit head from fall Face Other appears to have vg1 petechiae to Right cheek. Gastrointestinal: Abdomen is bruised left upper quadrant and left lower quadrant Palpation No deficit noted. : No signs and/or symptoms were reported regarding the genitourinary system. Musculoskeletal: Circulation, motion, and sensation intact. Assessment: 09:21 Reassessment: SEE TRIAGE. vg1 10:16 Reassessment: Patient appears in no apparent distress at this time. No changes from vg1 previously documented assessment. Patient and/or family updated on plan of care and expected duration. Pain level reassessed. Patient is alert, oriented x 3, equal unlabored respirations, skin warm/dry/pink. Patient denies pain at this time. 11:15 Reassessment: Patient appears in no apparent distress at this time. No changes from vg1 previously documented assessment. Patient and/or family updated on plan of care and expected duration. Pain level reassessed. Patient is alert, oriented x 3, equal unlabored respirations, skin warm/dry/pink. Provider at bedside;. 12:15 Reassessment: Patient appears in no apparent distress at this time. No changes from vg1 previously documented assessment. Patient and/or family updated on plan of care and expected duration. Pain level reassessed. Patient is alert, oriented x 3, equal unlabored respirations, skin warm/dry/pink. Vital Signs: 09:12 BP 150 / 67; Pulse 76; Resp 16; Temp 97.9; Pulse Ox 99% ; Weight 56.7 kg; Height 5 ft. vg1 2 in. (157.48 cm); Pain 0/10; 09:45 BP 147 / 63; Pulse 68; Resp 15; Pulse Ox 98% on R/A; vg1 10:16 BP 140 / 86; Pulse 62; Resp 14; Pulse Ox 100% on R/A; vg1 10:51 BP 125 / 55; Pulse 65; Resp 18; Pulse Ox 99% on R/A; vg1 11:24 BP 141 / 61; Pulse 73; Resp 15; Pulse Ox 100% on R/A; vg1 12:00 BP 150 / 62; Pulse 71; Resp 20; Pulse Ox 100% on R/A; vg1 12:30 BP 151 / 57; Pulse 68; Resp 14; Pulse Ox 100% on R/A; vg1 12:49 BP 147 / 59; Pulse 71; Resp 16; Pulse Ox 98% on R/A; vg1 09:12 Body Mass Index 22.86 (56.70 kg, 157.48 cm) vg1 [place] Coma Score: 09:17 Eye Response: spontaneous(4). Verbal Response: oriented(5). Motor Response: obeys vg1 commands(6). Total: 15. 09:45 Eye Response: spontaneous(4). Verbal Response: oriented(5). Motor Response: obeys vg1 commands(6). Total: 15. 10:16 Eye Response: spontaneous(4). Verbal Response: oriented(5). Motor Response: obeys vg1 commands(6). Total: 15. 10:51 Eye Response: spontaneous(4). Verbal Response: oriented(5). Motor Response: obeys vg1 commands(6). Total: 15. 11:24 Eye Response: spontaneous(4). Verbal Response: oriented(5). Motor Response: obeys vg1 commands(6). Total: 15. 12:00 Eye Response: spontaneous(4). Verbal Response: oriented(5). Motor Response: obeys vg1 commands(6). Total: 15. 12:30 Eye Response: spontaneous(4). Verbal Response: oriented(5). Motor Response: obeys vg1 commands(6). Total: 15. 12:49 Eye Response: spontaneous(4). Verbal Response: oriented(5). Motor Response: obeys vg1 commands(6). Total: 15. Trauma Score (Adult): 09:17 Eye Response: spontaneous(1); Verbal Response: oriented(1); Motor Response: obeys vg1 commands(2); Systolic BP: > 89 mm Hg(4); Respiratory Rate: 10 to 29 per min(4); Kenneth Score: 15; Trauma Score: 12 ED Course: 09:05 Patient arrived in ED. [id number] 09:06 Stevenson Haywood DO is Attending Physician. ms3 09:12 Nguyen Betancur, RN is Primary Nurse. vg1 09:15 Triage completed. vg1 09:15 Arm band placed on. vg1 09:17 Patient has correct armband on for positive identification. Placed in gown. Bed in low vg1 position. Call light in reach. Side rails up X2. Patient maintains SpO2 saturation greater than 95% on room air. 09:17 Patient maintains SpO2 saturation greater than 95% on room air. vg1 09:20 Thermoregulation: warm blanket given to patient. vg1 09:22 Initial lab(s) drawn, by me. Inserted saline lock: 20 gauge in right antecubital area, tp1 using aseptic technique. Blood collected. 09:33 CT Head C Spine In Process Unspecified. EDMS 09:53 XRAY Chest (1 view) In Process Unspecified. EDMS 10:00 Wound care: to abrasion, located on Right elbow, right forarm, Left elbow and Left vg1 forarm was cleaned with soap and water, irrigated with normal saline, dressed with non adheerent pad , Patient tolerated well. 12:58 No provider procedures requiring assistance completed. IV discontinued, intact, vg1 bleeding controlled, No redness/swelling at site. Pressure dressing applied. Administered Medications: No medications were administered Medication: 12:58 VIS not applicable for this client. vg1 Intake: 12:59 PO: 0ml; IV: 0ml; Total: 0ml. vg1 Outcome: 11:51 Discharge ordered by MD. ms3 12:59 Discharged to home via wheelchair, with friend. vg1 12:59 Condition: good 12:59 Discharge instructions given to patient, Instructed on discharge instructions, follow up and referral plans. Demonstrated understanding of instructions, follow-up care. 12:59 Patient left the ED. vg1 Signatures: Dispatcher [employer] EDMS Ronny Jones RN RN [id number] Nguyen Betancur, RN RN vg1 Stevenson Haywood DO DO ms3 Danette Collado, RN RN tp1 Corrections: (The following items were deleted from the chart) 09:24 09:12 Chief complaint: EMS states: toned out for a fall; pt was found on the floor vg1 having involuntary muscle spasms; neighbor stated pt fell yesterday and has been 'acting weird since 0900 yesterday' Pt stated unsure if hit head. vg1
[2022-03-26 13:49] VITALS: TEMP 97.9
[2022-03-26 14:05] VITALS: BP 147/59; O2SAT 98
--- NOTE | 2022-03-27 08:50 | EKG ---
Test Date: 2022-03-26 Test Time: 09:53:26 Clinical Laboratory Technologist: ALESHIA MEASUREMENT RESULTS: Intervals: Rate: 60 CO: 164 QRSD: 78 QT: 400 QTc: 400 [place]: P: 65 CO: 164 QRS: 33 T: 59 INTERPRETIVE STATEMENTS: Normal sinus rhythm Normal ECG Compared to ECG 03/22/2019 16:00:30 No significant changes Electronically Signed On 03-27-22 08:47:08 CDT by Kuldip Rousseau
--- OUTSIDE RECORDS SUMMARY | 2022-03-27 15:25 | XMS REPORT | Continuity of Care Document ---
:1945 Author Organization [facility] t Address [facility] [place] [address] [place] [id number] Care Team Providers Name Role Phone Magdi Attending Clinician Unavailable Nabil ALBARRAN Attending Clinician Unavailable Romie Mccall Attending Clinician Unavailable CHRRADHAEN_F Attending Clinician Unavailable Vic Attending Clinician [phone] MARCELL Attending Clinician Unavailable FEI Attending Clinician Unavailable VIKTOR Attending Clinician Unavailable MD VIKTOR LAaron Attending Clinician Unavailable MELA Attending Clinician Unavailable Deion MILLER, Nabil Attending Clinician Donovan LOVE Attending Clinician Max MILLER Attending Clinician Only, Test Attending Clinician Unavailable Doctor Unassigned, Name Attending Clinician Unavailable Pob, Lab Main Attending Clinician Unavailable Nabil ALBARRAN Admitting Clinician Unavailable KNOW Admitting Clinician Unavailable VIC_F Admitting Clinician Unavailable FEI Admitting Clinician Unavailable VIKTOR Admitting Clinician Unavailable MD Giovanny FELDMAN Admitting Clinician Unavailable Nabil Albarran MD Admitting Clinician Payers Payer Name Policy Type Policy Number Effective Date Expiration Date S dulce MEDICARE PART A [id number] 2009 \\T\\ B 00:00:00 [place] [id number] 2020 00:00:00 [place]: [id number] 2009 [employer] 00:00:00 - RHC - FQHC [place] [id number] 2009 [employer]ANCE [employer] 00:00:00 Problems Condition Condition Condition Status Onset Resolution Last Treating Co mments Source Name Details Category Date Date Treatment Clinician Date Allergic Allergic Disease Active 2020-0 Unive rs rhinitis rhinitis 04-03 ity of 00:00: [place] 00 Medical Branch Bilateral Bilateral Disease Active 2020-0 Uni vers inguinal inguinal 04-03 ity of hernia hernia 00:00: [place] 00 Medical Branch Cholelithi Cholelithi Disease Active 2020-0 U nivers asis asis 04-03 ity of without without 00:00: [place] obstructio obstructio 00 Me dical n n Branch Diarrhea Diarrhea Disease Active 2019-0 Unive rs 04-03 ity of 00:00: [place] 00 Medical Branch Disorder Disorder Disease Active 2020-0 Unive rs of of 04-03 ity of gallbladde gallbladde [place] [facility] Hearing Hearing Disease Active 2020-0 Univers loss loss 04-03 ity of 00:00: [place] 00 Medical Branch Otalgia Otalgia Disease Active 2020-0 Univers 7- ity of 00:00: [place] 00 Medical [facility] Right Right Disease Active 2020-0 Univers lower lower 04-03 ity of quadrant quadrant 00:00: [place] pain pain 00 [facility] Branch Sinusitis Sinusitis Disease Active 2020-0 Uni vers 04-03 ity of 00:00: [place] 00 [facility] Allergies, Adverse Reactions, Alerts Allergy Allergy Status Severity Reaction(s) Onset Inactive Treating Comm ents Source Name Type Date Date Clinician No Known DA Active [facility]05 [place] 00:[facility]: [address] No Known DA Active U [facility]ie 10-05 [place] 00:[facility]: [address] NO KNOWN Drug Active Univers ALLERGIE Class ity of S [facility] Social History Social Habit Start Date Stop Date Quantity Comments Source Sex Assigned At [facility] Exposure to Not sure [facility] SARS-CoV-2 (event) [facility] Tobacco use and 2020-04-05 2020-04-05 Never used [facility] exposure 00:00:00 00:00:00 Medical [place] Smoking Status Start Date Stop Date Source Unknown if ever smoked [facility] Never smoker [facility] [place] [facility] Medications Ordered Filled Start Stop Current Ordering Indication Dosage Frequency Signature Comments Components Source Medication Medication Date Date Medication? Clinician (SIG) Name Name calcium-vit 2020-0 Yes 500{tbl Take 500 Univers neely 8-19 } tablets by ity of D3-vitamin 14:37: mouth [place] K (CITRACAL 24 daily. Medica l CHEW) 500 Branch mg-1,000 unit-40 mcg Chew folic 2020-0 Yes 1{tbl} Take 1 Univers acid/multiv 8-19 tablet by ity of it-min/lute 14:37: mouth [place] in (CENTRUM 24 daily. Medica l SILVER Branch ORAL) docosahexan 2020-0 Yes 1000mg Take 1,000 Univers oic 8-19 mg by ity of acid/epa 14:37: mouth [place] (FISH OIL 24 daily. Medical ORAL) Branch inosi/choli 2020-0 Yes 1{tbl} Take 1 Un lupe ne bit/vit 8-19 tablet by ity of Bcomp,C 14:37: mouth [place] (INOSITOL-C 24 daily. Medica l HOLINE Branch BIT-B CPLX-C ORAL) vit 2020-0 Yes 1{tbl} Take 1 Univers B,C-FA-zinc 8-19 tablet by ity of -copper 14:37: mouth [place] oxide-E 24 daily. Medical (STRESS Branch B-COMPLEX) 500-400-23. 9-3 mg-mcg-mg-m g Tab calcium 2020-0 Yes 800mg Take 800 Unive rs carbonate/v 8-19 mg by ity of itamin D3 14:37: mouth [place] (VITAMIN 24 daily. Medical D-3 ORAL) Branch Alpha 2020-0 Yes 1{capsu Take 1 Univers Lipoic Acid 8-19 le} capsule by it y of 300 mg Cap 14:37: mouth [place] 24 daily. Medical Branch vitamin C 2020-0 Yes 1{tbl} Take 1 Univ ers with raheel 8-19 tablet by ity o f hips 1,000 14:37: mouth [place] mg tablet 24 daily. Medical Branch aspirin 81 2020-0 Yes 1{tbl} Take 1 Uni vers mg EC 8-19 tablet by ity of tablet 14:37: mouth [place] 24 daily. Medical Branch calcium-vit 2020-0 Yes 500{tbl Take 500 Univers neely 8-19 } tablets by ity of D3-vitamin 14:37: mouth [place] K (CITRACAL 24 daily. Medica l CHEW) 500 Branch mg-1,000 unit-40 mcg Chew folic 2020-0 Yes 1{tbl} Take 1 Univers acid/multiv 8-19 tablet by ity of it-min/lute 14:37: mouth [place] in (CENTRUM 24 daily. Medica l SILVER Branch ORAL) docosahexan 2020-0 Yes 1000mg Take 1,000 Univers oic 8-19 mg by ity of acid/epa 14:37: mouth [place] (FISH OIL 24 daily. Medical ORAL) Branch inosi/choli 2020-0 Yes 1{tbl} Take 1 Un lupe ne bit/vit 8-19 tablet by ity of Bcomp,C 14:37: mouth [place] (INOSITOL-C 24 daily. Medica l HOLINE Branch BIT-B CPLX-C ORAL) vit 2020-0 Yes 1{tbl} Take 1 Univers B,C-FA-zinc 8-19 tablet by ity of -copper 14:37: mouth [place] oxide-E 24 daily. Medical (STRESS Branch B-COMPLEX) 500-400-23. 9-3 mg-mcg-mg-m g Tab calcium 2020-0 Yes 800mg Take 800 Unive rs carbonate/v 8-19 mg by ity of itamin D3 14:37: mouth [place] (VITAMIN 24 daily. Medical D-3 ORAL) Branch Alpha 2020-0 Yes 1{capsu Take 1 Univers Lipoic Acid 8-19 le} capsule by it y of 300 mg Cap 14:37: mouth [place] 24 daily. Medical Branch vitamin C 2020-0 Yes 1{tbl} Take 1 Univ ers with raheel 8-19 tablet by ity o f hips 1,000 14:37: mouth [place] mg tablet 24 daily. Medical Branch aspirin 81 2020-0 Yes 1{tbl} Take 1 Uni vers mg EC 8-19 tablet by ity of tablet 14:37: mouth [place] 24 daily. Medical Branch lactated 2020-0 Yes 1000mL at 75 Univer s ringers IV 8-19 mL/hr, ity of infusion 14:15: 1,000 [place], [place] 1[place]000 mL 00 IV Medical Infusion, Branch CONTINUOUS , Starting Thu04/25/20 at 0915, Until Discontinu ed, Routine, PACU propofoL IV 2020-0 2020- No Intravenou Univers infusion 8-19 08-19 s, ONCE ity of 13:29: 13:59 INTRA [place] 00 :43 PROCEDURE, Medical Starting Branch Thu04/25/20 at 0829, Until Thu04/25/20 at 0859, Routine, Intra-op remifentani 2020-0 2020- No Intravenou Univers L (ULTIVA) 04-25 s, ONCE ity o f injection 13:26: 13:59 INTRA [place] 00 :43 PROCEDURE, Medical Starting Branch Thu04/25/20 at 0826, Until Thu04/25/20 at 0859, Routine, Intra-op lactated 2020-0 2020- No IV Univers ringers IV 04-25 Infusion, ity of infusion 13:25: 13:59 [place]OUS [place] 00 :43 PRN, Medical Starting [place] Thu04/25/20 at 0825, Until Thu04/25/20 at 0859, Routine, Intra-op water for 2020-0 Yes PRN, Univers irrigation 04-25 Starting ity o f irrigation 13:19: Thu [place] solution 04/25/20 at [facility] [address] [place] [address] Until Discontinu ed, Routine, Intra-op sodium 2020-0 Yes PRN, Univers chloride 04-25 Starting ity of (NS) 13:18: Thu [place] injection 04/25/20 at [facility] [address] [place] [address] Until Discontinu ed, Routine, Intra-op neomycin-po 2020-0 Yes PRN, [facility] lymyxin-dex 04-25 Starting ity of amethasone 13:18: Thu (MAXITROL) 04/25/20 at [facility] ical [address] [place] [address] mg/g-10,000 Until unit/g-0.1 Discontinu % ed, ophthalmic Routine, ointment Intra-op Hyaluronida 2020-0 Yes PRN, Univer s se, Human 04-25 Starting ity of Recomb. 13:18: Thu [place] (HYLENEX) 04/25/20 at [facility] injection [address] [place] [address] Until Discontinu ed, Routine, Intra-op gentamicin 2020-0 Yes PRN, Univers injection 04-25 Starting ity of 13:17: Thu [place] 04/25/20 at [facility] 0817, [place] Until Discontinu ed, GENNARO, Intra-op eye block 2020-0 Yes PRN, Univers syringe 11 04-25 Starting ity o f mL 13:16: Wed [place] 00 04/25/20 at [facility] 0816, [place] Until Discontinu ed, Intra-op EPINEPHrine 2020-0 Yes PRN, Univer s 1:1,000 (1 04-25 Starting ity o f mg/mL) 13:15: Thu (ADRENALIN) 00 04/25/20 at Nv dical injection 0815, [place] Until Discontinu ed, Routine, Intra-op DUOVISC 2020-0 Yes PRN, Univers (DUOVISC 04-25 Starting ity of VISCO 13:15: Thu ELASTIC) 3 00 04/25/20 at [facility] ica %-4 %(0.5 0815, [place] mL) 1 % Until (0.55 mL) Discontinu intraocular ed, injection Routine, Intra-op dexamethaso 2020-0 Yes PRN, Univer s ne 04-25 Starting ity of (DECADRON 13:15: Thu PHOSPHATE) 04/25/20 at [facility] ical injection 0815, [place] Until Discontinu ed, Routine, Intra-op ceFAZolin 2020-0 Yes PRN, Univers (ANCEF) 04-25 Starting ity of injection 13:14: Thu [place] 00 04/25/20 at [facility] 0814, [place] Until Discontinu ed, GENNARO, Intra-op carbachoL 2020-0 Yes PRN, Univers (MIOSTAT) 04-25 Starting ity of 0.01 % 13:14: Thu [place] intraocular 00 04/25/20 at Nv dical injection 0814, [place] Until Discontinu ed, Routine, Intra-op balanced 2020-0 Yes PRN, Univers salt irrig 04-25 Starting ity o f soln comb1 13:14: Thu (BSS PLUS) 00 04/25/20 at [facility] ical ophthalmic 0814, [place] solution Until 500 mL bag Discontinu ed, Routine, Intra-op mydriatic 2020-0 2020- No .5mL 0.5 mL, Univ ers #5 04-25 Left Eye, ity of ophthalmic 12:15: 12:09 ONCE, 1 [place] solution 00 :00 dose, Wed Medica l 0.5 mL 04/25/20 at [place] syringe 0715, Routine, DSU Pre-op lactated 2020-0 2020- No 1000mL at [address] [place] [address] rs ringers IV 04-25 08-19 mL/hr, ity of infusion 12:15: 12:23 1,000 mL, [place] as 1,000 mL 00 :00 IV Medical Infusion, [place] ONCE, 1 dose, Thu04/25/20 at 0715, Routine, DSU Pre-op ondansetron 2020-0 2020- No 4mg 4 mg, Slow Univers (ZOFRAN 04-04 IV Push, ity of (PF)) 15:45: 14:38 ONCE, 1 [place] injection 4 00 :00 dose, Thu Med ical mg 04/04/20 at Branch 1045, Routine calcium 2020-0 Yes 800mg Take 800 Unive rs carbonate/v 7-29 mg by ity of itamin D3 15:16: mouth [place] (VITAMIN 01 daily. Medical D-3 ORAL) Branch Alpha 2020-0 Yes 1{capsu Take 1 Univers Lipoic Acid 7-29 le} capsule by it y of 300 mg Cap 15:16: mouth [place] 01 daily. Medical Branch vitamin C 2020-0 Yes 1{tbl} Take 1 Univ ers with raheel 7-29 tablet by ity o f hips 1,000 15:16: mouth [place] mg tablet 01 daily. Medical Branch aspirin 81 2020-0 Yes 1{tbl} Take 1 Uni vers mg EC 7-29 tablet by ity of tablet 15:16: mouth [place] 01 daily. Medical Branch calcium-vit 2020-0 Yes 500{tbl Take 500 Univers neely 7-29 } tablets by ity of D3-vitamin 15:16: mouth [place] K (CITRACAL 01 daily. Medica l CHEW) 500 Branch mg-1,000 unit-40 mcg Chew folic 2020-0 Yes 1{tbl} Take 1 Univers acid/multiv 7-29 tablet by ity of it-min/lute 15:16: mouth [place] in (CENTRUM 01 daily. Medica l SILVER Branch ORAL) docosahexan 2020-0 Yes 1000mg Take 1,000 Univers oic 7-29 mg by ity of acid/epa 15:16: mouth [place] (FISH OIL daily. Medical ORAL) Branch inosi/choli 2020-0 Yes 1{tbl} Take 1 Un lupe ne bit/vit 7-29 tablet by ity of Bcomp,C 15:16: mouth [place] (INOSITOL-C 01 daily. Medica l [facility] Branch BIT-B CPLX-C ORAL) vit 2020-0 Yes 1{tbl} Take 1 Univers B,C-FA-zinc 7-29 tablet by ity of -copper 15:16: mouth [place] oxide-E 01 daily. Medical (STRESS Branch B-COMPLEX) 500-400-23. 9-3 mg-mcg-mg-m g Tab calcium 2020-0 Yes 800mg Take 800 Unive rs carbonate/v 7-29 mg by ity of itamin D3 15:16: mouth [place] (VITAMIN 01 daily. Medical D-3 ORAL) Branch Alpha 2020-0 Yes 1{capsu Take 1 Univers Lipoic Acid 7-29 le} capsule by it y of 300 mg Cap 15:16: mouth [place] 01 daily. Medical Branch vitamin C 2020-0 Yes 1{tbl} Take 1 Univ ers with raheel 7-29 tablet by ity o f hips 1,000 15:16: mouth [place] mg tablet 01 daily. Medical Branch aspirin 81 2020-0 Yes 1{tbl} Take 1 Uni vers mg EC 7-29 tablet by ity of tablet 15:16: mouth [place] 01 daily. Medical Branch calcium-vit 2020-0 Yes 500{tbl Take 500 Univers neely 7-29 } tablets by ity of D3-vitamin 15:16: mouth [place] K (CITRACAL daily. Medica l CHEW) 500 Branch mg-1,000 unit-40 mcg Chew folic 2020-0 Yes 1{tbl} Take 1 Univers acid/multiv 7-29 tablet by ity of it-min/lute 15:16: mouth [place] in (CENTRUM 01 daily. Medica l SILVER Branch ORAL) docosahexan 2020-0 Yes 1000mg Take 1,000 Univers oic 7-29 mg by ity of acid/epa 15:16: mouth [place] (FISH OIL 01 daily. Medical ORAL) Branch inosi/choli 2020-0 Yes 1{tbl} Take 1 Un lupe ne bit/vit 7-29 tablet by ity of Bcomp,C 15:16: mouth [place] (INOSITOL-C 01 daily. [facility] BIT-B C[facility] ORAL) vit 2020-0 Yes 1{tbl} Take 1 Univers B,C-FA-zinc 7-29 tablet by ity of -copper 15:16: mouth [place] oxide-E 01 daily. Medical (STRESS Branch B-COMPLEX) 500-400-23. 9-3 mg-mcg-mg-m g Tab calcium 2020-0 Yes 800mg Take 800 Unive rs carbonate/v 7-29 mg by ity of itamin D3 15:16: mouth [place] (VITAMIN 01 daily. Medical D-3 ORAL) Branch Alpha 2020-0 Yes 1{capsu Take 1 Univers Lipoic Acid 7-29 le} capsule by it y of 300 mg Cap 15:16: mouth [place] 01 daily. Medical Branch vitamin C 2020-0 Yes 1{tbl} Take 1 Univ ers with raheel 7-29 tablet by ity o f hips 1,000 15:16: mouth [place] mg tablet 01 daily. Medical Branch aspirin 81 2020-0 Yes 1{tbl} Take 1 Uni vers mg EC 7-29 tablet by ity of tablet 15:16: mouth [place] 01 daily. Medical Branch calcium-vit 2020-0 Yes 500{tbl Take 500 Univers neely 7-29 } tablets by ity of D3-vitamin 15:16: mouth [place] K (CITRACAL 01 daily. Medica l CHEW) 500 Branch mg-1,000 unit-40 mcg Chew folic 2020-0 Yes 1{tbl} Take 1 Univers acid/multiv 7-29 tablet by ity of it-min/lute 15:16: mouth [place] in (CENTRUM 01 daily. Medica l SILVER Branch ORAL) docosahexan 2020-0 Yes 1000mg Take 1,000 Univers oic 7-29 mg by ity of acid/epa 15:16: mouth [place] (FISH OIL 01 daily. Medical ORAL) Branch inosi/choli 2020-0 Yes 1{tbl} Take 1 Un lupe ne bit/vit 7-29 tablet by ity of Bcomp,C 15:16: mouth [place] (INOSITOL-C 01 daily. Medica l HOLINE Branch BIT-B CPLX-C ORAL) vit 2020-0 Yes 1{tbl} Take 1 Univers B,C-FA-zinc 7-29 tablet by ity of -copper 15:16: mouth [place] oxide-E 01 daily. Medical (STRESS Branch B-COMPLEX) 500-400-23. 9-3 mg-mcg-mg-m g Tab lactated 2020-0 Yes 1000mL at 75 Univer s ringers IV 7-29 mL/hr, ity of infusion 14:45: 1,000 mL, [place] 1,000 mL 00 IV Medical Infusion, Branch CONTINUOUS , Starting Thu04/04/20 at 0945, Until Discontinu ed, Routine, PACU water for 2020-0 Yes PRN, Univers irrigation 04-04 Starting ity o f irrigation 12:49: Thu solution 04/04/20 at [facility] al 0749, [place] Until Discontinu ed, Routine, Intra-op sodium 2020-0 Yes PRN, Univers chloride 04-04 Starting ity of (NS) 12:49: Thu injection 04/04/20 at [facility] 0749, [place] Until Discontinu ed, Routine, Intra-op neomycin-po 2020-0 Yes PRN, Univer s lymyxin-dex 04-04 Starting ity of amethasone 12:49: Thu (MAXITROL) 04/04/20 at [facility] ical 3.5 0749, [place] mg/g-10,000 Until unit/g-0.1 Discontinu % ed, ophthalmic Routine, ointment Intra-op Hyaluronida 2020-0 Yes PRN, Univer s se, Human 04-04 Starting ity of Recomb. 12:49: Thu (HYLENEX) 04/04/20 at [facility] injection 0749, [place] Until Discontinu ed, Routine, Intra-op gentamicin 2020-0 Yes PRN, Univers injection 04-04 Starting ity of 12:49: Thu04/04/20 at [facility] 0749, [place] Until Discontinu ed, GENNARO, Intra-op eye block 2020-0 Yes PRN, Univers syringe 11 04-04 Starting ity o f mL 12:48: Thu04/04/20 at [facility] 0748, Branch Until Discontinu ed, Intra-op EPINEPHrine 2020-0 Yes PRN, Univer s 1:1,000 (1 04-04 Starting ity o f mg/mL) 12:48: Thu (ADRENALIN) 04/04/20 at Nv dical injection 0748, [place] Until Discontinu ed, Routine, Intra-op DUOVISC 2020-0 Yes PRN, Univers (DUOVISC 04-04 Starting ity of VISCO 12:47: Thu [place] ELASTIC) 3 04/04/20 at [facility] ical %-4 %(0.5 0747, Branch mL) 1 % Until (0.55 mL) Discontinu intraocular ed, injection Routine, Intra-op dexamethaso 2020-0 Yes PRN, Univer s ne 04-04 Starting ity of (DECADRON 12:47: Wed [place] PHOSPHATE) 04/04/20 at [facility] ica injection 0747, [place] Until Discontinu ed, Routine, Intra-op ceFAZolin 2020-0 Yes PRN, Univers (ANCEF) 04-04 Starting ity of injection 12:46: Thu [place] 00 04/04/20 at [facility] 0746, [place] Until Discontinu ed, GENNARO, Intra-op carbachoL 2020-0 Yes PRN, Univers (MIOSTAT) 04-04 Starting ity of 0.01 % 12:46: Thu [place] intraocular 00 04/04/20 at Nv dical injection 0746, [place] Until Discontinu ed, Routine, Intra-op balanced 2020-0 Yes PRN, Univers salt irrig 04-04 Starting ity o f soln comb1 12:46: Thu (BSS PLUS) 04/04/20 at [facility] ophthalmic 0746, [place] solution Until 500 mL bag Discontinu ed, Routine, Intra-op lactated 2020-0 2020- No 1000mL at [address] [place] [address] rs ringers IV 04-04 mL/hr, ity of infusion 12:15: 12:32 1,000 mL, [place] 1,000 mL 00 :00 IV Medical Infusion, [place] ONCE, 1 dose, Thu04/04/20 at 0715, Routine, DSU Pre-op mydriatic 2020-0 2020- No .5mL 0.5 mL, [facility] ers #5 04-04 Right Eye, ity of ophthalmic 12:15: 12:32 ONCE, 1 [place] solution 00 :00 dose, Thu Medica l 0.5 mL 04/04/20 at [place] syringe 0715, Routine aspirin 81 2020-0 Yes 1{tbl} Take 1 Uni vers mg EC - tablet by ity of tablet 14:42: mouth [place] 21 daily. Medical Branch Alpha 2020-0 Yes 1{capsu Take 1 Univers Lipoic Acid 04-03 le} capsule by it y of 300 mg Cap 14:42: mouth [place] 20 daily. [facility] Branch vitamin C 2020-0 Yes 1{tbl} Take 1 Univ ers with raheel 7-28 tablet by ity o f hips 1,000 14:42: mouth [place] mg tablet 20 daily. Medical Branch calcium-vit 2020-0 Yes 500{tbl Take 500 Univers neely 7-28 } tablets by ity of D3-vitamin 14:21: mouth [place] K (CITRACAL 47 daily. Medica l CHEW) 500 Branch mg-1,000 unit-40 mcg Chew folic 2020-0 Yes 1{tbl} Take 1 Univers acid/multiv 7-28 tablet by ity of it-min/lute 14:21: mouth [place] in (CENTRUM 47 daily. Medica l SILVER Branch ORAL) docosahexan 2020-0 Yes 1000mg Take 1,000 Univers oic 7-28 mg by ity of acid/epa 14:21: mouth [place] (FISH OIL 47 daily. Medical ORAL) Branch inosi/choli 2020-0 Yes 1{tbl} Take 1 Un lupe ne bit/vit 7-28 tablet by ity of Bcomp,C 14:21: mouth [place] (INOSITOL-C 47 daily. Medica l HOLINE Branch BIT-B CPLX-C ORAL) vit 2020-0 Yes 1{tbl} Take 1 Univers B,C-FA-zinc 7-28 tablet by ity of -copper 14:21: mouth [place] oxide-E 47 daily. Medical (STRESS Branch B-COMPLEX) 500-400-23. 9-3 mg-mcg-mg-m g Tab calcium 2020-0 Yes 800mg Take 800 Unive rs carbonate/v 7-28 mg by ity of itamin D3 14:21: mouth [place] (VITAMIN 47 daily. Medical D-3 ORAL) Branch atorvastati 2020-0 Yes 1{tbl} Take 1 Un lupe n 40 mg 7-13 tablet by ity of tablet 00:00: mouth at [place] 00 bedtime. Medical Branch atorvastati 2020-0 Yes 1{tbl} Take 1 Un lupe n 40 mg 7-13 tablet by ity of tablet 00:00: mouth at [place] 00 bedtime. Medical Branch atorvastati 2020-0 Yes 1{tbl} Take 1 Un lupe n 40 mg 7-13 tablet by ity of tablet 00:00: mouth at [place] 00 bedtime. Medical Branch atorvastati 2020-0 Yes 1{tbl} Take 1 Un lupe n 40 mg 7-13 tablet by ity of tablet 00:00: mouth at [place] 00 bedtime. Medical Branch atorvastati 2020-0 Yes 1{tbl} Take 1 Un lupe n 40 mg 7-13 tablet by ity of tablet 00:00: mouth at [place] 00 bedtime. Medical Branch atorvastati 2020-0 Yes 1{tbl} Take 1 Un lupe n 40 mg 7-13 tablet by ity of tablet 00:00: mouth at [place] 00 bedtime. Medical Branch azelastine 2019-0 Yes 1{spray Use 1 Uni vers 137 mcg 7-02 } Creole in ity of (0.1 %) 00:00: each [place] nasal spray 00 nostril 2 Med ical (two) Branch times daily. 1 spray in each nostril BID azelastine 2019-0 Yes 1{spray Use 1 Uni vers 137 mcg 7-02 } Cre[place] in ity of (0.1 %) 00:00: each [place] nasal spray 00 nostril 2 Med ical (two) Branch times daily. 1 spray in each nostril BID azelastine 2019-0 Yes 1{spray Use 1 Uni vers 137 mcg 7-02 } [place] in ity of (0.1 %) 00:00: each [place] nasal spray 00 nostril 2 Med ical (two) Branch times daily. 1 spray in each nostril BID azelastine 2019-0 Yes 1{spray Use 1 Uni vers 137 mcg 7-02 } Creole in ity of (0.1 %) 00:00: each [place] nasal spray 00 nostril 2 Med ical (two) Branch times daily. 1 spray in each nostril BID azelastine 2019-0 Yes 1{spray Use 1 Uni vers 137 mcg 7-02 } Creole in ity of (0.1 %) 00:00: each [place] nasal spray 00 nostril 2 Med ical (two) Branch times daily. 1 spray in each nostril BID azelastine 2020-0 Yes 1{spray Use 1 Uni vers 137 mcg 7-02 } Cre[place] in ity of (0.1 %) 00:00: each [place] nasal spray 00 nostril 2 Med ical (two) Branch times daily. 1 spray in each nostril BID Colestipol 2019-0 Yes 1{tbl} Take 1 Uni vers HCl 1 gram 7-01 tablet by ity of tablet 00:00: mouth 2 (two) Medical times Branch daily. Colestipol 2020-0 Yes 1{tbl} Take 1 Uni vers HCl 1 gram 7-01 tablet by ity of tablet 00:00: mouth 2 00 (two) Medical times Branch daily. Colestipol 2020-0 Yes 1{tbl} Take 1 Uni vers HCl 1 gram 7-01 tablet by ity of tablet 00:00: mouth 2 (two) Medical times Branch daily. Colestipol 2020-0 Yes 1{tbl} Take 1 Uni vers HCl 1 gram 7-01 tablet by ity of tablet 00:00: mouth 2 (two) Medical times Branch daily. Colestipol 2020-0 Yes 1{tbl} Take 1 Uni vers HCl 1 gram 7-01 tablet by ity of tablet 00:00: mouth 2 (two) Medical times Branch daily. Colestipol 2020-0 Yes 1{tbl} Take 1 Uni vers HCl 1 gram 7-01 tablet by ity of tablet 00:00: mouth 2 (two) Medical times Branch daily. fluticasone 2020-0 Yes 2{spray Use 2 Un lupe propionate 6-01 } Sprays in ity of 50 00:00: each [place] mcg/actuati 00 nostril 2 Med ical on nasal (two) Branch spray times daily as needed. fluticasone 2020-0 Yes 2{spray Use 2 Un lupe propionate 6-01 } Sprays in ity of 50 00:00: each [place] mcg/actuati 00 nostril 2 Med ical on nasal (two) Branch spray times daily as needed. fluticasone 2020-0 Yes 2{spray Use 2 Un lupe propionate 6-01 } Sprays in ity of 50 00:00: each [place] mcg/actuati 00 nostril 2 Med ical on nasal (two) Branch spray times daily as needed. fluticasone 2020-0 Yes 2{spray Use 2 Un lupe propionate 6-01 } Sprays in ity of 50 00:00: each [place] mcg/actuati 00 nostril 2 Med ical on nasal (two) Branch spray times daily as needed. fluticasone 2020-0 Yes 2{spray Use 2 Un lupe propionate 6-01 } Sprays in ity of 50 00:00: each [place] mcg/actuati 00 nostril 2 Med ical on nasal (two) Branch spray times daily as needed. fluticasone 2020-0 Yes 2{spray Use 2 Un lupe propionate 6-01 } Sprays in ity of 50 00:00: each [place] mcg/actuati 00 nostril 2 Med ical on nasal (two) Branch spray times daily as needed. lisinopril 2020-0 Yes 1{tbl} Take 1 Uni vers 5 mg tablet 5-13 tablet by ity of 00:00: mouth [place] 00 daily. Medical Branch lisinopril 2020-0 Yes 1{tbl} Take 1 Uni vers 5 mg tablet 5-13 tablet by ity of 00:00: mouth 00 daily. Medical Branch lisinopril 2020-0 Yes 1{tbl} Take 1 Uni vers 5 mg tablet 5-13 tablet by ity of 00:00: mouth 00 daily. Medical Branch lisinopril 2020-0 Yes 1{tbl} Take 1 Uni vers 5 mg tablet 5-13 tablet by ity of 00:00: mouth 00 daily. Medical Branch lisinopril 2020-0 Yes 1{tbl} Take 1 Uni vers 5 mg tablet 5-13 tablet by ity of 00:00: mouth 00 daily. Medical Branch lisinopril 2020-0 Yes 1{tbl} Take 1 Uni vers 5 mg tablet 5-13 tablet by ity of 00:00: mouth 00 daily. Medical Branch omeprazole 2020-0 Yes 1{capsu Take 1 Un lupe 40 mg 4-20 le} capsule by ity of capsule 00:00: mouth [place] 00 daily. [facility] omeprazole 2020-0 Yes 1{capsu Take 1 Un lupe 40 mg 4-20 le} capsule by ity of capsule 00:00: mouth 00 daily. Medical Branch omeprazole 2020-0 Yes 1{capsu Take 1 Un lupe 40 mg 4-20 le} capsule by ity of capsule 00:00: mouth 00 daily. Medical Branch omeprazole 2020-0 Yes 1{capsu Take 1 Un lupe 40 mg 4-20 le} capsule by ity of capsule 00:00: mouth [place] 00 daily. [facility] Branch omeprazole 2020-0 Yes 1{capsu Take 1 Un lupe 40 mg 4-20 le} capsule by ity of capsule 00:00: mouth 00 daily. Medical Branch omeprazole 2020-0 Yes 1{capsu Take 1 Un lupe 40 mg 4-20 le} capsule by ity of capsule 00:00: mouth 00 daily. Medical Branch insulin 2018-09 Yes 10U inject 10 Unive rs detemir 1-14 Units ity of U-100 00:00: under the [place] (LEVEMIR 00 skin every Medic al U-100 morning as Branch INSULIN) needed. 100 unit/mL [id number] injection units SC QAM 15 minutes before breakfast & inject 10 units in the evening SC 15 minutes before dinner insulin 2018-09 Yes 10U inject 10 Unive rs detemir 1-14 Units ity of U-100 00:00: under the [place] (LEVEMIR 00 skin every Medic al U-100 morning as Branch INSULIN) needed. 100 unit/mL [id number] injection units SC QAM 15 minutes before breakfast & inject 10 units in the evening SC 15 minutes before dinner insulin 2018-09 Yes 10U inject 10 Unive rs detemir 1-14 Units ity of U-100 00:00: under the [place] (LEVEMIR 00 skin every Medic al U-100 morning as Branch INSULIN) needed. 100 unit/mL [id number] injection units SC QAM 15 minutes before breakfast & inject 10 units in the evening SC 15 minutes before dinner insulin 2018-09 Yes 10U inject 10 Unive rs detemir 1-14 Units ity of U-100 00:00: under the [place] (LEVEMIR 00 skin every Medic al U-100 morning as Branch INSULIN) needed. 100 unit/mL [id number] injection units SC QAM 15 minutes before breakfast & inject 10 units in the evening SC 15 minutes before dinner insulin 2018-09 Yes 10U inject 10 Unive rs detemir 1-14 Units ity of U-100 00:00: under the [place] (LEVEMIR 00 skin every Medic al U-100 morning as Branch INSULIN) needed. 100 unit/mL [id number] injection units SC QAM 15 minutes before breakfast & inject 10 units in the evening SC 15 minutes before dinner insulin 2018-09 Yes 10U inject 10 Unive rs detemir 1-14 Units ity of U-100 00:00: under the [place] (LEVEMIR 00 skin every Medic al U-100 morning as Branch INSULIN) needed. 100 unit/mL injection units SC QAM 15 minutes before breakfast & inject 10 units in the evening SC 15 minutes before dinner dicyclomine 2018-09 Yes 1{capsu Take 1 U nivers 10 mg 1-06 le} capsule by ity of capsule 00:00: mouth [place] 00 daily. Medical Branch dicyclomine 2018-09 Yes 1{capsu Take 1 U nivers 10 mg 1-06 le} capsule by ity of capsule 00:00: mouth [place] 00 daily. Medical Branch dicyclomine 2018-09 Yes 1{capsu Take 1 U nivers 10 mg 1-06 le} capsule by ity of capsule 00:00: mouth [place] 00 daily. Medical Branch dicyclomine 2018-09 Yes 1{capsu Take 1 U nivers 10 mg 1-06 le} capsule by ity of capsule 00:00: mouth [place] 00 daily. Medical Branch dicyclomine 2018-09 Yes 1{capsu Take 1 U nivers 10 mg 1-06 le} capsule by ity of capsule 00:00: mouth [place] 00 daily. Medical Branch dicyclomine 2018-09 Yes 1{capsu Take 1 U nivers 10 mg 1-06 le} capsule by ity of capsule 00:00: mouth [place] 00 daily. Medical Branch diphenoxyla 2018-09 Yes 1{tbl} Take 1 Un lupe te-atropine 1-05 tablet by ity of 2.5-0.025 00:00: mouth 2 [place] mg per 00 (two) Medical tablet times Branch daily as needed. diphenoxyla 2018-09 Yes 1{tbl} Take 1 Un lupe te-atropine 1-05 tablet by ity of 2.5-0.025 00:00: mouth 2 [place] mg per 00 (two) Medical tablet times Branch daily as needed. diphenoxyla 2018-09 Yes 1{tbl} Take 1 Un lupe te-atropine 1-05 tablet by ity of 2.5-0.025 00:00: mouth 2 [place] mg per 00 (two) Medical tablet times Branch daily as needed. diphenoxyla 2018-09 Yes 1{tbl} Take 1 Un lupe te-atropine 1-05 tablet by ity of 2.5-0.025 00:00: mouth 2 [place] mg per 00 (two) Medical tablet times Branch daily as needed. diphenoxyla 2018-09 Yes 1{tbl} Take 1 Un lupe te-atropine 1-05 tablet by ity of 2.5-0.025 00:00: mouth 2 [place] mg per 00 (two) Medical tablet times Branch daily as needed. diphenoxyla 2018-09 Yes 1{tbl} Take 1 Un lupe te-atropine 1-05 tablet by ity of 2.5-0.025 00:00: mouth 2 [place] mg per 00 (two) Medical tablet times Branch daily as needed. Humulin Humulin No Humulin [place] 70/30 U-100 70/30 U-100 70/30 da Insulin 100 Insulin 100 U-100 [facility] unit/mL unit/mL Insulin al subcutaneou subcutaneou 100 H ealth s s unit/mL Outreac suspension suspension subcutaneo h us Program suspension insulin insulin No insulin [place] syringe syringe syringe da U-100 with U-100 with U-100 with [facility] needle 0.5 needle 0.5 needle 0.5 al mL 31 gauge mL 31 gauge mL 31 Health x 5/16" USE x 5/16" USE gauge x Outreac ONE SYRINGE ONE SYRINGE 5/16" USE h SC BID SC BID ONE Program SYRINGE SC BID Levemir Levemir No Levemir [place] U-100 U-100 U-100 da Insulin 100 Insulin 100 Insulin [facility] unit/mL unit/mL 100 al subcutaneou subcutaneou unit/mL Health s solution s solution subcutaneo Outreac INJECT 10 INJECT 10 us h UNITS UNDER UNITS UNDER solution Program THE SKIN THE SKIN INJECT 10 EVERY EVERY UNITS MORNING 15 MORNING 15 UNDER THE MINUTES MINUTES SKIN EVERY BEFORE BEFORE MORNING 15 BREAKFAST BREAKFAST MINUTES AND 10 AND 10 BEFORE UNITS IN UNITS IN BREAKFAST THE EVENING THE EVENING AND 10 UNDER THE UNDER THE UNITS IN SKIN 15 SKIN 15 THE MINUTES MINUTES EVENING BEFORE BEFORE UNDER THE DINNER DINNER SKIN 15 MINUTES BEFORE DINNER lisinopril lisinopril No lisinopril [place] 2.5 mg 2.5 mg 2.5 mg da tablet TAKE tablet TAKE tablet [facility] 2 TABLETS 2 TABLETS TAKE 2 al BY MOUTH BY MOUTH TABLETS BY H ealth ONCE A DAY ONCE A DAY MOUTH ONCE Outreac A DAY h Program lisinopril lisinopril No lisinopril [place] 5 mg tablet 5 mg tablet 5 mg d a TAKE 1 TAKE 1 tablet [facility] TABLET BY TABLET BY TAKE 1 al MOUTH DAILY MOUTH DAILY TABLET BY Health MOUTH Outreac DAILY h Program Xiidra 5 % Xiidra 5 % No Xiidra 5 % [place] eye drops eye drops eye drops da in a in a in a [facility] dropperette dropperette dropperett al INSTILL 1 INSTILL 1 e INSTILL Health DROP IN DROP IN 1 DROP IN Outr eac BOTH EYES BOTH EYES BOTH EYES h TWICE DAILY TWICE DAILY TWICE Program DAILY atorvastati atorvastati No atorvastat [place] n 40 mg n 40 mg in 40 mg da tablet TAKE tablet TAKE tablet [facility] 1 TABLET BY 1 TABLET BY TAKE 1 al MOUTH EVERY MOUTH EVERY TABLET BY Health NIGHT AT NIGHT AT MOUTH Outrea c BEDTIME BEDTIME EVERY h NIGHT AT Program BEDTIME azelastine azelastine No azelastine [place] 137 mcg 137 mcg 137 mcg da (0.1 %) (0.1 %) (0.1 %) [facility] p nasal spray nasal spray nasal al aerosol USE aerosol USE spray Health 1 SPRAY IN 1 SPRAY IN aerosol Outre[facility] EACH EACH USE 1 h NOSTRIL NOSTRIL SPRAY IN Progr am TWICE DAILY TWICE DAILY EACH DIRECTED DIRECTED NOSTRIL TWICE DAILY DIRECTED budesonide budesonide No budesonide [place] DR - ER 3 DR - ER 3 DR - ER 3 da mg mg mg [facility] capsule,del capsule,del capsule,de al ayed,extend ayed,extend layed,exte Health ed release ed release nded Out reac TAKE 3 TAKE 3 release h CAPSULES BY CAPSULES BY TAKE 3 Program MOUTH DAILY MOUTH DAILY CAPSULES BY MOUTH DAILY clopidogrel clopidogrel No clopidogre [place] 75 mg 75 mg l 75 mg da tablet TAKE tablet TAKE tablet [facility] 1 TABLET BY 1 TABLET BY TAKE 1 al MOUTH EVERY MOUTH EVERY TABLET BY Health DAY DAY MOUTH Outreac EVERY DAY h Program dicyclomine dicyclomine No dicyclomin [place] 10 mg 10 mg e 10 mg da capsule capsule capsule [facility] p TAKE 1 TAKE 1 TAKE 1 al CAPSULE BY CAPSULE BY CAPSULE BY Health MOUTH THREE MOUTH THREE MOUTH Outreac TIMES DAILY TIMES DAILY THREE h TIMES Program DAILY diphenoxyla diphenoxyla No diphenoxyl [place] te-atropine te-atropine ate-atropi da 2.5 2.5 ne 2.5 [facility] mg-0.025 mg mg-0.025 mg mg-0.025 al tablet TAKE tablet TAKE mg tablet Health 2 TABLETS 2 TABLETS TAKE 2 Out reac BY MOUTH BY MOUTH TABLETS BY h THREE TIMES THREE TIMES MOUTH Program DAILY DAILY THREE NEEDED. NO NEEDED. NO TIMES MORE THAN 8 MORE THAN 8 DAILY DAILY DAILY NEEDED. NO MORE THAN 8 DAILY fluticasone fluticasone No fluticason [place] propionate propionate e da 50 50 propionate [facility] mcg/actuati mcg/actuati 50 a l on nasal on nasal mcg/actuat H ealth spray,suspe spray,suspe ion nasal Outreac nsion nsion spray,susp h ension Program Immunizations Ordered Immunization Filled Immunization Date Status Commen ts Source Name Name COVID-19, mRNA, COVID-19, mRNA, 2020-11-13 Completed Brandon jackson LNP-S, PF, 100 LNP-S, PF, 100 00:00:00 [facility] Health mcg/0.5 mL dose mcg/0.5 mL dose Outr each Program COVID-19, mRNA, COVID-19, mRNA, 2020-10-16 Completed Brandon renetta LNP-S, PF, 100 LNP-S, PF, 100 00:00:00 [facility] pal Health mcg/0.5 mL dose mcg/0.5 mL dose Outr each Program Vital Signs Vital Name Observation Time Observation Value Comments Source BP Diastolic 2021-02-05 00:00:00 71 [facility] Height 2021-02-05 00:00:00 61 [in_i] [facility] BMI (Body Mass 2021-02-05 00:00:00 23.6 kg/m2 [facility] assurance officer Index) [facility] BP Systolic 2021-02-05 00:00:00 167 mm[Hg] [facility] Body Weight 2021-02-05 00:00:00 125 [lb_av] [facility] [place] [facility] Systolic blood 2020-04-25 14:15:00 143 mm[Hg] Univer sity of pressure [place] [facility] Diastolic blood 2020-04-25 14:15:00 69 mm[Hg] Unive rsity of pressure [place] [facility] Heart rate 2020-04-25 14:15:00 69 /min [facility] [place] [facility] Respiratory rate 2020-04-25 14:15:00 17 /min Univ ersity of [place] [facility] Oxygen saturation in 2020-04-25 14:15:00 97 /min University of Arterial blood by [facility] Pulse oximetry Branch Body temperature 2020-04-25 14:00:00 37.11 [place] Univ ersity [facility] [place] [facility] Body height 2020-04-11 17:47:00 157.5 cm [facility] [place] [facility] Body weight 2020-04-11 17:47:00 56.7 kg [facility] [place] [facility] BMI 2020-04-11 17:47:00 22.86 kg/m2 [facility] [place] [facility] Systolic blood 2020-04-25 14:15:00 143 mm[Hg] Univer sity of pressure [place] [facility] Diastolic blood 2020-04-25 14:15:00 69 mm[Hg] Unive rsity of pressure [place] [facility] Heart rate 2020-04-25 14:15:00 69 /min [facility] [place] [facility] Respiratory rate 2020-04-25 14:15:00 17 /min Univ ersity of [place] [facility] Oxygen saturation in 2020-04-25 14:15:00 97 /min University of Arterial blood by [facility] Pulse oximetry Branch Body temperature 2020-04-25 14:00:00 37.11 [place] Univ [facility] [place] [facility] Body height 2020-04-11 17:47:00 157.5 cm [facility] [place] [facility] Body weight 2020-04-11 17:47:00 56.7 kg [facility] [place] [facility] BMI 2020-04-11 17:47:00 22.86 kg/m2 [facility] [place] [facility] Respiratory rate 2020-04-25 13:56:00 18 /min Univ ers[facility] [place] [facility] Respiratory rate 2020-04-25 13:56:00 18 /min Univ [facility] [place] [facility] Systolic blood 2020-04-04 14:55:00 138 mm[Hg] Univer sity of pressure [place] [facility] Diastolic blood 2020-04-04 14:55:00 61 mm[Hg] Unive rsity of pressure [place] [facility] Heart rate 2020-04-04 14:40:00 65 /min [facility] [place] [facility] Respiratory rate 2020-04-04 14:40:00 17 /min Univ ers[facility] [place] [facility] Oxygen saturation in 2020-04-04 14:40:00 97 /min [facility] of Arterial blood by [facility] Pulse oximetry Branch Body temperature 2020-04-04 14:30:00 36.61 [place] [facility] ersity of [place] [facility] Body height 2020-04-03 14:00:00 157.5 cm [facility] [place] [facility] Body weight 2020-04-03 14:00:00 56.7 kg [facility] [place] [facility] BMI 2020-04-03 14:00:00 22.86 kg/m2 [facility] [place] [facility] Systolic blood 2020-04-04 14:55:00 138 mm[Hg] Univer sity of pressure [place] [facility] Diastolic blood 2020-04-04 14:55:00 61 mm[Hg] Unive rsity of pressure [place] [facility] Heart rate 2020-04-04 14:40:00 65 /min [facility] [place] [facility] Respiratory rate 2020-04-04 14:40:00 17 /min Univ ersity of [place] [facility] Oxygen saturation in 2020-04-04 14:40:00 97 /min University of Arterial blood by [facility] Pulse oximetry Branch Body temperature 2020-04-04 14:30:00 36.61 [place] [facility] ersity of [place] [facility] Body height 2020-04-03 14:00:00 157.5 cm [facility] [place] [facility] Body weight 2020-04-03 14:00:00 56.7 kg [facility] [place] [facility] BMI 2020-04-03 14:00:00 22.86 kg/m2 [facility] [place] [facility] BP Diastolic 2019-07-11 00:00:00 68 mm[Hg] [place] [facility] Height 2019-07-11 00:00:00 60 [in_i] [place] [facility] BMI (Body Mass 2019-07-11 00:00:00 24.6 kg/m2 [place] assurance officer Index) [facility] BP Systolic 2019-07-11 00:00:00 156 mm[Hg] Britany staples [facility] Kay[facility] m Body Weight 2019-07-11 00:00:00 126 [lb_av] Britany a [facility] Procedures Procedure Date / Time Performing Clinician Source Performed POCT GLUCOSE(AGE >30DAYS) 2020-04-25 12:10:00 Charanjit Man Un [facility] ASSIGNMENT OF BENEFITS 2020-04-24 15:21:25 [facility] [place] [facility] POCT GLUCOSE(AGE >30DAYS) 2020-04-04 12:25:00 Angel Paul [facility] [place] CONSENT/REFUSAL FOR 2020-04-03 15:49:09 Doctor Unassigned, [facility] DIAGNOSIS AND TREATMENT [place] [facility] ASSIGNMENT OF BENEFITS 2020-04-03 15:47:43 Doctor Unassigned, [facility] [place] [facility] NOTICE OF PRIVACY 2020-04-03 15:47:27 Doctor Unassigned, [facility] PRACTICES [place] [facility] CONSENT/REFUSAL FOR 2020-04-03 15:47:05 Doctor Unassigned, [facility] DIAGNOSIS AND TREATMENT [place] [facility] ASSIGNMENT OF BENEFITS 2020-04-03 15:46:44 Doctor Unassigned, [facility] [place] [facility] ASSIGNMENT OF BENEFITS 2020-03-26 18:17:31 Doctor Unassigned, [facility] [place] [facility] Hernia Repair W/mesh 2015-09-07 00:00:00 Elly hager [facility] Cholecystectomy 2015-09-07 00:00:00 Aaron [facility] Encounters Start End Encounter Admission Attending Care Care Encounter Source Date/Time Date/Time Type Type Clinicians Facility Department ID 2021-10-02 Outpatient MYRA [place] [facility] [id number] Common 14:02:17 [place] [address] [facility] 2021-07-05 Outpatient Sandra ALBARRAN [facility] STEVE [id number] Univers 10:50:44 [facility] 2021-07-05 Outpatient Sandra ALBARRAN [facility] STEVE [id number] Univers 08:43:19 ALLEN lubin [facility] 2020-10-06 Inpatient JOSE GraceWU SURG [id number] [facility] 07:00:00 Vonnie [id number] [facility] 2022-01-13 2022-01-13 Outpatient CHRETIEN_F [facility] [id number] [place] 02:53:00 02:53:00 0509 [facility] 2022-01-13 2022-01-13 Outpatient Chretien, [facility] [id number] 00:00:00 00:00:00 Peg [id number] 2022-01-09 2022-01-09 Outpatient MARCELL, [facility] [id number] [place] 00:00:00 00:00:00 MICHELINE 557 Method i 2022-01-06 2022-01-06 Outpatient CHRETIEN_F [facility] [id number] [place] 11:17:00 11:17:00 0502 [facility] 2021-05-09 2021-05-09 Outpatient ELY_KO MENEERU MOHOP [id number] [facility] 01:52:00 01:52:00 0902 [facility] 2021-05-01 2021-05-01 Outpatient MARCELL, [facility] [id number] [place] 00:00:00 00:00:00 MICHELINE 089 Method i 2021-05-01 2021-05-01 Outpatient MARCELL [facility] [id number] [place] 00:00:00 00:00:00 MICHELINE 090 Method i 2021-05-01 2021-05-01 Outpatient MARCLEL, [facility] [id number] [place] 00:00:00 00:00:00 MICHELINE 091 Method i 2021-04-10 2021-04-10 Outpatient MARCELL [facility] [id number] [place] 00:00:00 00:00:00 MICHELINE 907 Method i 2021-04-04 2021-04-04 Outpatient ELY_JAMES MEHOP [facility] [id number] [place] 01:22:00 01:22:00 0729 [facility] 2021-02-28 2021-02-28 Outpatient FEI MONEERU [facility] [id number] [place] 01:28:00 01:28:00 0624 [facility] 2021-02-06 2021-02-06 Outpatient FEI [facility] [id number] [place] 10:18:00 10:18:00 0602 [facility] 2021-02-05 2021-02-05 Outpatient FEI [facility] [id number] [place] 12:10:00 12:10:00 0601 [facility] 2021-02-05 2021-02-05 Ko [facility] [place] - [id number] M at[place]or 00:00:00 00:00:00 Bolivar Liu MD: [facility] [address] [facility] al N, [place] [facility] [address] h , Ph. Program 2021-02-03 2021-02-03 Outpatient FEI [facility] [id number] [place] 03:00:00 03:00:00 0530 [facility] 2020-10-12 2020-10-15 [facility] [id number] [place] 00:00:00 00:00:00 KATELIN [address] 2020-10-10 2020-10-10 Outpatient VIKTOR [facility] [id number] [place] 00:00:00 00:00:00 KATELIN [address] 2020-10-10 2020-10-10 Outpatient VIKTOR [facility] [id number] [place] 00:00:00 00:00:00 KATELIN [address] 2020-09-29 2020-09-29 Outpatient Dabaghi, HCAWU [facility]G [id number] [facility] 07:00:00 07:00:00 [place] [id number] [facility] 2020-08-20 2020-08-20 Outpatient FEI ROWLAND [facility] [id number] [place] 03:19:00 03:19:00 0503 da [facility] 2020-05-15 2020-05-15 Outpatient ANTONIO PLAZA [facility] [id number] [place] 00:00:00 00:00:[address] 2020-04-25 2020-04-25 [facility] [id number] [facility] 06:40:00 09:30:00 Encounter Allen Junior [id number] [place]2.686 [place] [id number] [facility] 071 [place] 2020-04-25 2020-04-25 [facility] [id number] 06:40:00 09:30:00 Encounter Allen Junior [id number] [place] [id number] Surgical [id number] [place] [address] 2020-04-25 2020-04-25 Anesthesia Charanjit Man [facility] 1.2.840.11 [id number] [facility] 08:25:00 08:59:00 Bettie Santana [id number] [id number] [place] [id number] [facility] 020 [place] 2020-04-25 2020-04-25 Anesthesia Charanjit Man [facility] [id number] 08:25:00 08:59:00 Bettie Santana [id number] [place] [id number] Surgical [id number] [place] [address] 2020-04-24 2020-04-24 Laboratory Only, Adc Test [facility] 1.2.840. 114 [id number] Univers 10:22:46 10:37:46 Only Allen Albarran 350.1.13.1 0 [place] [id number] [address] 2020-04-24 2020-04-24 Laboratory Only, Adc [facility] 1.2.840.114 [id number] 10:22:46 10:37:46 Only Test Sandi [id number] [place] 4.2.7.2.686 [place] [id number] 2020-04-24 2020-04-24 Outpatient R [facility] [id number] Univers 10:30:00 10:30:00 [id number] ity [facility] 2020-04-24 2020-04-24 Outpatient R [facility] [id number] Univers 10:30:00 10:30:00 ity [facility] 2020-04-24 2020-04-24 Orders Doctor MUNOZ 1.2.840.114 [id number] Univers 00:00:00 00:00:00 Only Unassigned, FREDDIE [id number] ity of [place] [facility] 4.2.7.2.686 Danny as [id number] [address] 2020-04-24 2020-04-24 Orders Doctor MUNOZ 1.2.840.114 [id number] 00:00:00 00:00:00 Only Unassigned, FREDDIE [id number] [place] [facility] 4.2.7.2.686 [id number] 009 2020-04-04 2020-04-04 [facility] [id number] [facility] 07:06:00 09:58:00 Encounter Allen Nabil Junior [id number] ity [facility] 4[place]2.7.2.686 [place] [id number] [address] 2020-04-04 2020-04-04 [facility] [id number] 07:06:00 09:58:00 Encounter Allen Nabil Junior [id number] [place] 4.2.7.2.686 Surgical [id number] [place] [address] 2020-04-03 2020-04-03 Outpatient R [facility] [id number] Univers 11:30:00 11:30:00 [id number] ity [facility] 2020-04-03 2020-04-03 Outpatient R [facility] [id number] Univers 11:30:00 11:30:00 ALLEN ity [facility] 2020-04-03 2020-04-03 Laboratory Only, [facility] Test [place] 1.2.840. 114 [id number] Univers 10:47:50 11:02:50 Only Allen Albarran 350.1.13.1 0 [place]7.2.[place] [id number] [address] 2020-04-03 2020-04-03 Laboratory Only, [facility] 1.2.840.114 [id number] 10:47:50 11:02:50 Only Test Sandi 350.1.13.10 [place] 4.2.7.2.686 [place] [id number] [facility] 2020-03-26 2020-03-26 [facility] [id number] Univers 13:45:00 13:45:00 ALLEN valarie [facility] 2020-03-26 2020-03-26 Dry Roaster Jodi, [facility] Lab Main [facility] 1.2.8 40.114 [id number] Univers 13:16:32 13:31:32 Visit Allen Albarran 350.1.13.1 0 [place].2.[place] Profess[place] [id number] Nv dical [address] 2020-03-26 2020-03-26 Dry Roaster Jodi, [facility] 1.2.840.114 [id number] 13:16:32 13:31:32 Visit Lab Main Sandi 350.1.13.10 [place] 4.2.7.2.686 Professio [id number] [address] 2020-03-26 2020-03-26 Orders Doctor MUNOZ 1.2.840.114 [id number] Univers 00:00:00 00:00:00 Only Unassigned, FREDDIE 350.1.13.10 [facility]y [facility] [place] [facility] 4.2.7.2.686 Danny as [id number] [address] 2020-03-26 2020-03-26 Orders Doctor MUNOZ 1.2.840.114 [id number] 00:00:00 00:00:00 Only Unassigned, FREDDIE 350.1.13.10 [place] [facility] 4.2.7.2.686 [id number] 2020-03-15 2020-03-15 Outpatient ANTONIO PLAZA [facility] [id number] [place] 00:00:00 00:00:[address] 2020-03-07 2020-03-07 Outpatient ANTONIO PLAZA [facility] [id number] [place] 00:00:00 00:00:00 853 Method i 2020-01-25 2020-01-25 Outpatient ANTONIO PLAZA [facility] [id number] [place] 00:00:00 00:00:00 638 Method i 2019-07-11 2019-07-11 Ko NEERU [place] - [id number] M [place] 00:00:00 00:00:00 Bolivar Liu MD: [facility] [address] [facility] [place], [place], [place] [address] h , Ph. Program Results Test Description Test Time Test Comments Results Result Comments Source SARS-CoV-2 (COVID-19) RNA [Presence] in Respiratory sp ecimen by 2020-10-10 21:11:10 REGINALD with probe detection Test Item Value Reference Range Interpretation Comme nts SARS-CoV-2 (COVID-19) RNA [Presence] in Respiratory Not detected No t-Detected specimen by REGINALD with probe detection (test code = 95742-5) BASIC METABOLIC [id number] 06:46:00 Test Item Value Reference Range Interpretation Comments SODIUM (test code = 138 MMOL/L 137-145 N NA) POTASSIUM (test code = 4.3 MMOL/L 3.5-5.1 N K) CHLORIDE (test code = 102 MMOL/L 98-107 N CL) CARBON DIOXIDE (test 29 MMOL/L 22-30 N code = CO2) GLUCOSE (test code = 142 MG/DL 74-106 H GLU) BLOOD UREA NITROGEN 20 MG/DL 7-17 H (test code = BUN) GLOMERULAR FILTRATION > 60 Report ing units: RATE (test code = GFR) ml/mi n/1.73 m2 (Modified MDRD Formula)Referen ce Range: > or = 6 0 ml/min/1.73 m2 CREATININE (test code 0.70 MG/DL 0.52-1.04 N = CREAT) CALCIUM (test code = 9.4 MG/DL 8.4-10.2 N CA) LIPID PROFILE (CORONARY RISK)2020-10-06 06:46:00 Test Item Value Reference Range Interpretation Comments TRIGLYCERIDES (test 62 MG/DL TRIGLYCE RIDES code = TRIG) REFERENCE RANGE:Normal: < 150 mg/dLBorderline High: 150-199 mg/dLHi gh: 200-499 mg/dLVe ry High: >=500 mg/ dL CHOLESTEROL (test code 173 MG/DL <200 = CHOL) HDL CHOLESTEROL (test 70 MG/DL 40-59 H code = HDL) LIPOPROTEIN LDL (test 82 MG/DL 0-99 N code = LDL) OPTIMAL........ .<100 mg/dLNEAR OPTIMAL/ABOVE OPTIMAL........ .100-12 9 mg/dL BORDERLINE HIGH.........13 0-159 mg/dL HIGH.........16 0-189 mg/dL VERY HIGH...... ...>/= 190 mg/dL [id number] 06:46:00 Test Item Value Reference Range Interpretation Comments MAGNESIUM (test code = MAG) 2.1 MG/DL 1.6-2.3 N BASIC METABOLIC [id number] 06:35:00 Test Item Value Reference Range Interpretation Comments SODIUM (test code = 138 MMOL/L 137-145 N NA) POTASSIUM (test code = 4.3 MMOL/L 3.5-5.1 N K) CHLORIDE (test code = 102 MMOL/L 98-107 N CL) CARBON DIOXIDE (test 29 MMOL/L 22-30 N code = CO2) GLUCOSE (test code = 142 MG/DL 74-106 H GLU) BLOOD UREA NITROGEN 20 MG/DL 7-17 H (test code = BUN) GLOMERULAR FILTRATION > 60 Report ing units: RATE (test code = GFR) ml/mi n/1.73 m2 (Modified MDRD Formula)Referen ce Range: > or = 6 0 ml/min/1.73 m2 CREATININE (test code 0.70 MG/DL 0.52-1.04 N = CREAT) CALCIUM (test code = 9.4 MG/DL 8.4-10.2 N CA) LIPID PROFILE (CORONARY RISK)2020-10-06 06:35:00 Test Item Value Reference Range Interpretation Comments TRIGLYCERIDES (test 62 MG/DL TRIGLYCE RIDES code = TRIG) REFERENCE RANGE:Normal: < 150 mg/dLBorderline High: 150-199 mg/dLHi gh: 200-499 mg/dLVe ry High: >=500 mg/ dL CHOLESTEROL (test code 173 MG/DL <200 = CHOL) HDL CHOLESTEROL (test 70 MG/DL 40-59 H code = HDL) LIPOPROTEIN LDL (test MG/DL 0-99 code = LDL) [id number] 06:35:00 Test Item Value Reference Range Interpretation Comments MAGNESIUM (test code = MAG) 2.1 MG/DL 1.6-2.3 N BASIC METABOLIC [id number] 06:34:00 Test Item Value Reference Range Interpretation Comments SODIUM (test code = 138 MMOL/L 137-145 N NA) POTASSIUM (test code = 4.3 MMOL/L 3.5-5.1 N K) CHLORIDE (test code = 102 MMOL/L 98-107 N CL) CARBON DIOXIDE (test 29 MMOL/L 22-30 N code = CO2) GLUCOSE (test code = 142 MG/DL 74-106 H GLU) BLOOD UREA NITROGEN 20 MG/DL 7-17 H (test code = BUN) GLOMERULAR FILTRATION > 60 Report ing units: RATE (test code = GFR) ml/mi n/1.73 m2 (Modified MDRD Formula)Referen ce Range: > or = 6 0 ml/min/1.73 m2 CREATININE (test code 0.70 MG/DL 0.52-1.04 N = CREAT) CALCIUM (test code = MG/DL 8.7-9.7 CA) LIPID PROFILE (CORONARY RISK)2020-10-06 06:34:00 Test Item Value Reference Range Interpretation Comments TRIGLYCERIDES (test code = TRIG) MG/DL CHOLESTEROL (test code = CHOL) 173 MG/DL <200 HDL CHOLESTEROL (test code = HDL) MG/DL 40-59 LIPOPROTEIN LDL (test code = LDL) MG/DL 0-99 [id number] 06:34:00 Test Item Value Reference Range Interpretation Comments MAGNESIUM (test code = MAG) MG/DL 1.6-2.3 BASIC METABOLIC [id number] 06:32:00 Test Item Value Reference Range Interpretation Comments SODIUM (test code = NA) 138 MMOL/L 137-145 N POTASSIUM (test code = K) 4.3 MMOL/L 3.5-5.1 N CHLORIDE (test code = CL) 102 MMOL/L 98-107 N CARBON DIOXIDE (test code = CO2) MMOL/L 22-30 GLUCOSE (test code = GLU) MG/DL 74-106 BLOOD UREA NITROGEN (test code = MG/DL 7-17 BUN) GLOMERULAR FILTRATION RATE (test code = GFR) CREATININE (test code = CREAT) MG/DL 0.52-1.04 CALCIUM (test code = CA) MG/DL 8.7-9.7 LIPID PROFILE (CORONARY RISK)2020-10-06 06:32:00 Test Item Value Reference Range Interpretation Comments TRIGLYCERIDES (test code = TRIG) MG/DL CHOLESTEROL (test code = CHOL) MG/DL <200 HDL CHOLESTEROL (test code = HDL) MG/DL 40-59 LIPOPROTEIN LDL (test code = LDL) MG/DL 0-99 [id number] 06:32:00 Test Item Value Reference Range Interpretation Comments MAGNESIUM (test code = MAG) MG/DL 1.6-2.3 BASIC METABOLIC [id number] 06:31:00 Test Item Value Reference Range Interpretation Comments SODIUM (test code = NA) 138 MMOL/L 137-145 N POTASSIUM (test code = K) MMOL/L 3.5-5.1 CHLORIDE (test code = CL) 102 MMOL/L 98-107 N CARBON DIOXIDE (test code = CO2) MMOL/L 22-30 GLUCOSE (test code = GLU) MG/DL 74-106 BLOOD UREA NITROGEN (test code = MG/DL 7-17 BUN) GLOMERULAR FILTRATION RATE (test code = GFR) CREATININE (test code = CREAT) MG/DL 0.52-1.04 CALCIUM (test code = CA) MG/DL 8.7-9.7 LIPID PROFILE (CORONARY RISK)2020-10-06 06:31:00 Test Item Value Reference Range Interpretation Comments TRIGLYCERIDES (test code = TRIG) MG/DL CHOLESTEROL (test code = CHOL) MG/DL <200 HDL CHOLESTEROL (test code = HDL) MG/DL 40-59 LIPOPROTEIN LDL (test code = LDL) MG/DL 0-99 [id number] 06:31:00 Test Item Value Reference Range Interpretation Comments MAGNESIUM (test code = MAG) MG/DL 1.6-2.3 PROTHROMBIN [id number] 06:18:00 Test Item Value Reference Range Interpretation Comments PROTHROMBIN TIME 11.0 SECONDS 9.4-12.5 N PATIENT (test code = PTP) INTERNATIONAL NORMAL 1.0 The INR is to be RATIO (test code = used only for INR) monitoring oral anticoagulantth erap y. INDICATION I NR VALUE ---- ---- ---- -------1. Prophylaxis, de ep venous thrombos is, including hig h risk surgery. 2.0 - 3.0 2. Prophylaxis, de ep venous thrombos is, hip surgery, treatment for d eep venous thrombosis or pulmonary prevention of systemic emboli sm in patients wit h valvular heart disease, atrial fibrillation, tissue heart va lve, or acute myocar dial infarction. 2.0 - 3 .0 3. Mechanical prosthesis hear t valves, recurrent syste louann embolism. 3.0 - 4.5 PTT [id number] 06:18:00 Test Item Value Reference Range Interpretation Comments PTT ACTIVATED (test code = APTT) 29.5 SECONDS 25.1-36.5 N CBC W/AUTO [id number] 06:12:00 Test Item Value Reference Range Interpretation Comments WHITE BLOOD CELL (test code = 5.6 K/MM3 3.8-9.8 N WBC) RED BLOOD CELL (test code = 4.11 M/MM3 3.58-4.97 N RBC) HEMOGLOBIN (test code = HGB) 12.8 G/DL 11.2-14.9 N HEMATOCRIT (test code = HCT) 40.0 % 33.2-43.5 N MEAN CELL VOLUME (test code = 97 fL 80.7-99.1 N MCV) MEAN CELL HGB (test code = MCH) 31.1 pg 27.0-34.1 N MEAN CELL HGB CONCETRATION 32.0 % 32.2-35.7 L (test code = MCHC) RED CELL DISTRIBUTION WIDTH 13.1 % 12.1-15.2 N (test code = RDW) PLATELET COUNT (test code = 199 K/MM3 129-368 N PLT) MEAN PLATELET VOLUME (test code 9.3 fl 7.4-10.4 N = MPV) NEUTROPHIL % (test code = NT%) 48.0 % 43-75 N IMMATURE GRANULOCYTE % (test 0.0 % 0.0-2.0 N code = IG%) LYMPHOCYTE % (test code = LY%) 35.1 % 14-44 N MONOCYTE % (test code = MO%) 9.8 % 4-13 N EOSINOPHIL % (test code = EO%) 6.4 % 0-6 H BASOPHIL % (test code = BA%) 0.7 % 0-2 N NUCLEATED RBC % (test code = 0.0 % 0-1.0 N NRBC%) NEUTROPHIL # (test code = NT#) 2.68 K/mm3 2.0-7.6 N IMMATURE GRANULOCYTE # (test 0.00 x10 3/uL 0-0.03 N code = IG#) LYMPHOCYTE # (test code = LY#) 1.96 K/mm3 1.0-3.8 N MONOCYTE # (test code = MO#) 0.55 K/mm3 0.1-0.8 N EOSINOPHIL # (test code = EO#) 0.36 K/mm3 0.0-0.2 H BASOPHIL # (test code = BA#) 0.04 K/mm3 0.0-0.2 N NUCLEATED RBC # (test code = 0.00 K/mm3 0.0-0.1 N NRBC#) COVID 19 Asymptomatic IH [id number] 05:06:00 Test Item Value Reference Range Interpretation Comments COVID 19 NEGATIVE Negative "Negative resul ts from Asymptomatic IH AG patients with symptom (test code = onset beyondfiv e days, COVNONPUIAG) should be sy camelia as presumptive, andconfirmation with a molecular assay , if necessary forpa tient management may be performed. Nega tive results do notr ule out COVID-19 and sh ould not be used as the sole basisfor treatm ent or patient managem ent decisions, includinginfect ion control decisio ns. Negative result s should beconsidered in the context of a pa tients recent exposure s,history, and the presenc e of clinical signs and symptomsconsist ent with COVID-19.This t est detects both vi able andnon-viable S ARS-CoV and SARS CoV-2. Test performance dep endson the amount of virus (antigen) in the sample." POCT [id number] 12:10:00 Test Item Value Reference Range Interpretation Comments POCT Glu (age>30days) (test code = 85 mg/dL 70-110 3342) Lab Interpretation (test code = Normal 55461-8) [facility] [id number] 12:25:00 Test Item Value Reference Range Interpretation Comments POCT Glu (age>30days) (test code = 90 mg/dL 70-110 3342) Lab Interpretation (test code = Normal 86605-9) [facility] [place]
== END 2022-03-26 12:59 | disposition home or self-care (01) ==
LOC: ER 09:02
DX: R55 Syncope and collapse (principal); S51.812A Laceration without foreign body of left forearm, initial encounter; S51.811A Laceration without foreign body of right forearm, initial encounter; W18.30XA Fall on same level, unspecified, initial encounter; I10 Essential (primary) hypertension; E11.9 Type 2 diabetes mellitus without complications; Z79.4 Long term (current) use of insulin
CPT/HCPCS: 36415; 70450; 71045; 72125; 80048; 82947; 83735; 84484; 85025; 85610; 86850; 86900; 86901; 93005